=== PATIENT | female | born 1970 | race Caucasian/White ===

== ENCOUNTER 2017-05-08 13:38 | Emergency (ER) | payer SELFPAY ==
[2017-05-08 14:23] VITALS: BP 138/75
--- NOTE | 2017-05-08 14:32 | UC ---
General HPI - HPI Summary HPI Summary: needs Mirapex for Parkinson refilled---has original bottle from pharmacy with her - History of Current Complaint Chief Complaint: UCMedRefill Stated Complaint: MED REFILL Time Seen by Provider: 05/08/17 14:30 Hx Obtained From: Patient Onset/Duration: Gradual Onset Timing: Constant Current Severity: None - Allergy/Home Medications Allergies/Adverse Reactions: Allergies Allergy/AdvReac Type Severity Reaction Status Date / Time ear drop Allergy Unknown Uncoded 05/08/17 14:23 Reaction Details PMH/Surg Hx/FS Hx/Imm Hx Previously Healthy: No - Parkinsons - Surgical History Surgical History: Yes Surgery Procedure, Year, and Place: choley, hysterectomy, psoriasis - Family History Known Family History: Positive: None - Social History Occupation: Unemployed Lives: With Family Alcohol Use: None Substance Use Type: Marijuana Substance Use Comment - Amount & Last Used: daily Smoking Status (MU): Light Every Day Tobacco Smoker Type: Pipe Review of Systems Constitutional: Negative Skin: Negative Eyes: Negative ENT: Negative Respiratory: Negative Cardiovascular: Negative Gastrointestinal: Negative Genitourinary: Negative Motor: Negative Neurovascular: Negative Musculoskeletal: Negative Neurological: Negative Psychological: Negative All Other Systems Reviewed And Are Negative: Yes Physical Exam Triage Information Reviewed: Yes Appearance: Well-Appearing, No Pain Distress, Well-Nourished Vital Signs: Initial Vital Signs Temp 98.5 F 05/08/17 14:17 Pulse 72 05/08/17 14:17 Resp 18 05/08/17 14:17 BP 138/75 05/08/17 14:17 Pulse Ox 98 05/08/17 14:17 Vital Signs Reviewed: Yes Eye Exam: Normal Eyes: Positive: Conjunctiva Clear ENT Exam: Normal ENT: Positive: Normal ENT inspection, Hearing grossly normal. Negative: Nasal congestion, Nasal drainage, Trismus, Muffled/hoarse voice Dental Exam: Normal Neck exam: Normal Neck: Positive: Supple, Nontender Respiratory Exam: Normal Respiratory: Positive: No respiratory distress, No accessory muscle use Cardiovascular Exam: Normal Cardiovascular: Positive: Pulses Normal, Brisk Capillary Refill Musculoskeletal Exam: Normal Neurological Exam: Normal Neurological: Positive: Alert, Muscle Tone Normal Psychological Exam: Normal Skin Exam: Normal Course/Dx - Course Course Of Treatment: refill Mirapex, primary care provider referral--follow [facility] - Differential Dx - Multi-Symptom Differential Diagnoses: Other - parkinsons, [facility] Provider Diagnoses: Hea;juan carlos MAintenreji, PArkinsons Disease Discharge - Discharge Plan Condition: Stable Disposition: HOME Prescriptions: Pramipexole [Mirapex] 3 mg PO TID #180 tab Patient Education Materials: Parkinson Disease (ED) Referrals: [facility] [Provider Group] - 2 Weeks
== END 2017-05-08 14:35 | disposition home or self-care (01) ==
LOC: UCEAST 13:38
DX: G20 Parkinson's disease (principal); Z76.0 Encounter for issue of repeat prescription; F12.90 Cannabis use, unspecified, uncomplicated; F17.290 Nicotine dependence, other tobacco product, uncomplicated
CPT/HCPCS: 99201; G0463

== ENCOUNTER 2017-05-25 13:39 | Emergency (ER) | payer SELFPAY ==
[2017-05-25] MEDS ORDERED: Ammonia Inhalant* 1 EA AMP INH ONE (13:59)
[2017-05-25 14:47] LABS: Hematocrit 42 % (35-47); Hemoglobin 13.9 g/dl (12.0-16.0); Mean Corpuscular HGB Conc 33 g/dl (31-36); Mean Corpuscular Hemoglobin 32 pg (27-31); Mean Corpuscular Volume 95 fL (80-97); Mean Platelet Volume 9 um3 (7.4-10.4); Red Blood Count 4.39 10^6/ul (4.0-5.4); Red Cell Distribution Width 15 % (10.5-15); White Blood Count 9.4 10^3/ul (3.5-10.8)
--- NOTE | 2017-05-25 14:49 | RAD ---
Indication: Subacute hemiparesis and aphasia. Possible stroke. Symptom onset after 10:00 PM last night. Comparison: No relevant prior exams available on the [facility] PACS for comparison. Technique: Noncontrast CT vertex of skull through foramen magnum. Report: There is reyes matter white matter obscuration at the LEFT temporal lobe and junction of the temporal lobe and parietal lobe with associated sulcal effacement. Negative for effacement of the LEFT lateral ventricle, midline shift, or effacement of the basal cisterns. Suggestion of a hyperdense LEFT MCA sign from the M2 segment distal to the temporal lobe. Small hyperdense vessel at the LEFT temporal lobe. Negative for intra or extra-axial hemorrhage. Unremarkable orbital contents. No suspicious lesions of the calvarium or skull base evident. Complete opacification of the partially visualized LEFT maxillary sinus with indolent thickening of the sinus mendoza consistent with chronic sinusitis. Unremarkable scalp. IMPRESSION: The constellation of findings is most suspicious for a large LEFT middle cerebral artery distribution subacute ischemic stroke with mild associated mass effect. As tumor with vasogenic peritumoral edema is not entirely excluded MRI without and with contrast is suggested for further assessment if deemed appropriate based on clinical presentation and is clinically feasible. Results discussed with Dr. Quintero 05/25/2017 2:45 PM EDT
[2017-05-25] MEDS ORDERED: ASPIRIN 600 MG PR ONE (15:00)
[2017-05-25 15:06] LABS: Albumin 3.9 g/dL (3.2-5.2); BUN/Creatinine Ratio 10.1 (8-20); Calcium 9.5 mg/dL (8.6-10.3); EGFR African American 117.8 (>60); EGFR Non-African American 91.6 (>60); Globulin 3.2 g/dL (2-4); Potassium 3.6 mmol/L (3.5-5.0); Total Bilirubin 0.5 mg/dL (0.2-1.0); Total Protein 7.1 g/dL (6.4-8.9)
[2017-05-25] MEDS ORDERED: LORazepam INJ* 2 MG/ML 1 ML VIAL IV PUSH ONE ×2 (17:52→18:33)
[2017-05-25] MEDS ORDERED: Haloperidol INJ IV/IM* 5 MG/ML AMP IV SLOW PU ONE (17:52)
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
[2017-05-25] MEDS ORDERED: LORazepam INJ* 2 MG/ML 1 ML VIAL ONE (18:33)
[2017-05-25 18:37] VITALS: BP 137/82
--- NOTE | 2017-05-25 21:31 | CONS ---
NEUROLOGY CONSULTATION: DATE OF CONSULTATION: 05/25/17 - EMERGENCY DEPT. REFERRING PHYSICIAN: Dr. Quintero, he is in the emergency room. CHIEF COMPLAINT: Right-sided weakness. HISTORY OF PRESENT ILLNESS: Ara Weldon is a 46-year-old presumably right - handed woman, who presented to the emergency room today with right hemiparesis and aphasia. The patient is very aphasic and there is nobody currently in the exam room, so the history is from records we obtained from [facility] as well as Dr. Quintero, who apparently spoke to the boyfriend. According to records from [facility], she developed a weakness of her right side and difficulty speaking about 2:30 yesterday. She was evaluated at [facility] Emergency Room last evening around 6. She was described as having weakness in the right arm and leg and aphasia. A CT scan of the brain was obtained, was interpreted as showing early changes in the left hemisphere. A CT angiogram of the neck and brain was interpreted showing occlusion of the M1 segment of the left middle cerebral artery. It was felt that the patient was improving and did not require TPA. Apparently, there was discussion about transfer her to hospital with endovascular capabilities and she signed out against medical advice. Her boyfriend apparently called an ambulance, who brought her into our emergency room this afternoon. The ambulance notes indicate the patient was found lying in a tent and was unable to move her right side. We have very little medical history, but she carries a diagnosis of Parkinson's disease. She may have been on a dopamine agonist from the records from [facility]. The patient is too aphasic to get any additional history. There are no hospital records in our system that I can see that she has been in our hospital before. According to records obtained from [facility], I believe she is on Mirapex. ALLERGIES: We are not aware of any drug allergies. SOCIAL HISTORY: She apparently smokes cigarettes and marijuana. PHYSICAL EXAM: She is an obese 46-year-old with multiple tattoos. Blood pressure is most recently 124/91, but earlier to that was 155/90, heart rate 16 and sinus on the monitor, respirations are about 18, and oxygen saturations 99% on room air. Heart is in a regular rate and rhythm and I do not hear any murmurs. Head is atraumatic. Oral mucosa is moist and atraumatic. Neck is supple. I do not feel carotid pulses, but I do not hear any bruits either. Neurological exam, eye movements are full. Pupils react equally to light from 4 down to 2.5 mm. Funduscopic exam reveals sharp discs bilaterally. She responds to visual threat from the left side, but not as well from the right or clearly from the right. She has central pattern of right facial weakness. She has decreased nasal tickle response on the right. She has no movement of the right arm or right leg proximally and distally. She has good movement to command of the left arm and leg. She has a right Babinski sign and left plantar flexor. She is alert and tearful and repeats herself over and over. DIAGNOSTIC STUDIES/LAB DATA: CT scan of the brain obtained here is reviewed and which reveals edema in the left hemisphere, particularly posteriorly. There may be some early brain stem changes as well. There is no left to right shift, however. Other laboratory data available here is a normal CBC and chemistry profile. I have no other laboratory data. CT angiogram from [facility] is reviewed, but I do not have the images. IMPRESSION: Left middle cerebral artery infarction. She appears to have involvement of the lower extremity as well. I am concerned that her young age and with early changes on her CT that she is at risk of malignant middle cerebral artery syndrome. She is certainly not a candidate for any type of endovascular procedure at this point. I put in a call to the [facility] Stroke [facility] to discuss her case, specifically regarding the possibility of hemicraniectomy if she does develop malignant middle cerebral artery syndrome. I discussed with Dr. Dotson whether or not that could be done in our institution and he felt that he would not perform that procedure here. There is nobody present with the patient, so I am going to have to presume that she would want a transfer to a center capable of that procedure unless her boyfriend or some other relative comes in and they can give me further information. [id number]/[facility] #: [id number] RICHARD
== END 2017-05-25 19:07 | disposition short-term general hospital (02) ==
LOC: ED 13:39
DX: I66.09 Occlusion and stenosis of unspecified middle cerebral artery (principal); R53.1 Weakness; F17.210 Nicotine dependence, cigarettes, uncomplicated
CPT/HCPCS: 36415; 70450; 80053; 84484; 85027; 85610; 85730; 93005; 96374; 96375; A9270-GY; J1630; J2060

== ENCOUNTER 2017-06-08 22:58 | Inpatient (IN) | payer SELFPAY ==
[2017-06-08] MEDS ORDERED: Pramipexole TAB* 0.5 MG PO ONE (23:22)
[2017-06-09] MEDS ORDERED: Haloperidol INJ IV/IM* 5 MG/ML AMP ONE (00:25)
[2017-06-09] MEDS ORDERED: diPHENhydraMINE IV* 50 MG/ML 1 ml VIAL (BENADRYL) ONE (00:26)
[2017-06-09] MEDS ORDERED: LORazepam INJ* 2 MG/ML 1 ML VIAL ONE (00:26)
--- NOTE | 2017-06-09 00:41 | ED ---
Mishel Aviles Edward, scribed for Lonnie Sims MD on 06/08/17 at 2323 . Altered Mental Status - HPI Summary HPI Summary: 46 y/o female BIBA w/ increased confusion, per EMS. Pt wants medications on visit. PMHx CVA 2 weeks ago. LEVEL 5 CAVEAT DUE TO AMS.pt d/c 1 day ago from [place] for cva/psych - History Of Current Complaint Chief Complaint: EDAltMentalStatus Stated Complaint: CONFUSION Time Seen by Provider: 06/08/17 23:17 Hx From Patient Unobtainable Due To: Altered Mental Status - Confusion - Allergies/Home Medications Allergies/Adverse Reactions: Allergies Allergy/AdvReac Type Severity Reaction Status Date / Time ear drop Allergy Unknown Uncoded 05/08/17 14:23 Reaction Details Home Medications: Home Medications Aspirin TAB* [Aspirin 325 MG TAB*] 325 mg PO DAILY 06/09/17 [History Confirmed 06/09/17] Atorvastatin* [Lipitor*] 80 mg PO DAILY 06/09/17 [History Confirmed 06/09/17] Divalproex ER TAB(*) [Depakote ER TAB(*)] 500 mg PO QPM 06/09/17 [History Confirmed 06/09/17] PMH/Surg Hx/FS Hx/Imm Hx Previously Healthy: No Neurological History: Reports: Hx CVA - Surgical History Surgery Procedure, Year, and Place: choley, hysterectomy, psoriasis Infectious Disease History: No Infectious Disease History: Denies: Traveled Outside the [place] in Last 30 Days - Family History Known Family History: Positive: Other - parkinsons, and stroke - Social History Alcohol Use: None Substance Use Type: Reports: Marijuana Substance Use Comment - Amount & Last Used: daily Smoking Status (MU): Light Every Day Tobacco Smoker Type: Pipe Review of Systems - ROS Summary Review of Systems Summary: LEVEL 5 CAVEAT DUE TO AMS. Constitutional: Negative Eyes: Negative ENT: Negative Cardiovascular: Negative Respiratory: Negative Gastrointestinal: Negative Genitourinary: Negative Musculoskeletal: Negative Skin: Negative Neurological: Negative Psychological: Normal All Other Systems Reviewed And Are Negative: No Physical Exam - Summary Physical Exam Summary: LEVEL 5 CAVEAT DUE TO AMS. Triage Information Reviewed: Yes Vital Signs On Initial Exam: Initial Vitals Temp Pulse Resp BP Pulse Ox 97.4 F 87 16 130/70 96 06/08/17 23:04 06/08/17 23:04 06/08/17 23:04 06/08/17 23:04 06/08/17 23:04 Vital Signs Reviewed: Yes Appearance: Positive: Well-Appearing, No Pain Distress - mildly confused Skin: Positive: Warm Head/Face: Positive: Normal Head/Face Inspection Eyes: Positive: BECKIE Neck: Positive: Supple Respiratory/Lung Sounds: Positive: Breath Sounds Present Cardiovascular: Positive: RRR Abdomen Description: Positive: Nontender, Soft Musculoskeletal: Positive: Strength/ROM Intact Neurological: Positive: Normal Gait, Expressive Aphasia - mild Psychiatric: Positive: Affect/Mood Appropriate Diagnostics - Vital Signs Vital Signs Temp Pulse Resp BP Pulse Ox 06/08/17 23:04 97.4 F 87 16 130/70 96 - Laboratory Result Diagrams: 06/09/17 01:15 06/09/17 01:15 Lab Statement: Any lab studies that have been ordered have been reviewed, and results considered in the medical decision making process. - CT BRAIN CT CT Interpretation: Positive (See Comments) - HIGH ATTENUATION OF GYRI IN THE AREA OF INFARCT IN THE L TEMPORAL LOBE WHICH MAY OR PRESENT PETECHIAL HEMORRHAGE OR CORTICAL LAMINAR NECROSIS CT Interpretation Completed By: Radiologist Altered Mental Statu Course/Dx - Course Assessment/Plan: 46 y/o female BIBA w/ increased confusion, per EMS. Pt wants medications on visit. Pt had a CVA 2 weeks ago. LEVEL 5 CAVEAT D[address] TO AMS. BRAIN [address] SHOWS HIGH ATTENUATION OF GYRI IN THE AREA OF INFARCT IN THE L TEMPORAL LOBE WHICH MAY OR PRESENT PETECHIAL HEMORRHAGE OR CORTICAL LAMINAR NECROSIS. Pt [facility] be [facility] [place] [facility]. Roe agreed to admit at 14:30. - Diagnoses Discharge Diagnoses: Confusion Discharge - Discharge Plan Condition: Stable Disposition: ADMITTED TO [facility] documentation as recorded by the Mishel noyola Edward accurately reflects the service I personally performed and the decisions made by , Lonnie Sims MD.
[2017-06-09 01:26] LABS: Hematocrit 41 % (35-47); Hemoglobin 13.7 g/dl (12.0-16.0); Mean Corpuscular HGB Conc 33 g/dl (31-36); Mean Corpuscular Hemoglobin 32 pg (27-31); Mean Corpuscular Volume 95 fL (80-97); Mean Platelet Volume 10 um3 (7.4-10.4); Red Blood Count 4.32 10^6/ul (4.0-5.4); Red Cell Distribution Width 14 % (10.5-15); White Blood Count 12.8 10^3/ul (3.5-10.8)
[2017-06-09 01:28] LABS: Add Diff/Slide Review? Slide Review Added; Comments Flag Yes
[2017-06-09 01:35] LABS: Urine Bacteria 1+ (Absent); Urine Bilirubin Negative (Negative); Urine Glucose Negative (Negative); Urine Nitrite Negative (Negative)
[2017-06-09 01:40] LABS: Albumin 3.9 g/dL (3.2-5.2); BUN/Creatinine Ratio 15.9 (8-20); Calcium 9.8 mg/dL (8.6-10.3); EGFR African American 130.8 (>60); EGFR Non-African American 101.7 (>60); Globulin 3.1 g/dL (2-4); Potassium 3.3 mmol/L (3.5-5.0); Total Bilirubin 0.4 mg/dL (0.2-1.0)
[2017-06-09 01:43] LABS: Troponin I 0.01 ng/mL (<0.04)
[2017-06-09] MEDS: Heparin VIAL(*) 5000 UNITS/ML VIAL (FIVE THOUSAND) SUBCUT SCH ×2 (05:57→15:44)
--- NOTE | 2017-06-09 07:50 | RAD ---
HISTORY: Confusion COMPARISONS: May 25, 2017 TECHNIQUE: Multiple contiguous axial CT scans were obtained of the head without intravenous contrast. FINDINGS: HEMORRHAGE/INFARCT: There is high attenuation material noted along the left temporal lobe in a gyriform pattern consistent with tear for hemorrhage. There is hypoattenuation in this area also consistent with subacute infarct corresponding to there is noted on the previous examination. Elsewhere, there is no hemorrhage or acute infarct. MASSES/SHIFT: There is no mass or shift. EXTRA-AXIAL SPACES: There are no extra-axial fluid collections. SULCI AND VENTRICLES: The sulci and ventricles are normal in size and position for the patient's stated age. CEREBRUM: As noted above, there is hypoattenuation with gyriform high attenuation of left temporal lobe BRAINSTEM: There are no focal parenchymal abnormalities. CEREBELLUM: There are no focal parenchymal abnormalities. VESSELS: The vessels are grossly normal. PARANASAL SINUSES: There is opacification of the left maxillary sinus with osteitis of the surrounding bone ORBITS: The orbits are unremarkable. BONES AND SOFT TISSUE: No bone or soft tissue abnormalities are noted. OTHER: None IMPRESSION: 1. AGAIN NOTED ARE FINDINGS CONSISTENT WITH SUBACUTE INFARCT OF THE LEFT TEMPORAL LOBE. THERE HAS BEEN INTERVAL DEVELOPMENT OF GYRIFORM HIGH ATTENUATION MATERIAL CONSISTENT WITH HEMORRHAGIC CONVERSION/CORTICAL LAMINAR NECROSIS. THERE IS NO LARGE PARENCHYMAL HEMATOMA. THERE IS NO SHIFT. 2. FINDINGS CONSISTENT WITH CHRONIC SINUSITIS OF THE LEFT MAXILLARY SINUS
[2017-06-09] MEDS: Pramipexole TAB* 0.5 MG PO SCH ×3 (08:24→20:14)
[2017-06-09] MEDS: Atorvastatin* 80 MG TAB PO SCH (08:26)
[2017-06-09] MEDS: Aspirin TAB* 325 MG PO SCH (08:26)
[2017-06-09] MEDS ORDERED: Ibuprofen TAB* 600 MG PO PRN (08:36)
--- NOTE | 2017-06-09 09:06 | HP ---
CC: Estefania Ansari NP * HISTORY AND PHYSICAL: DATE OF ADMISSION: 06/09/17 PRIMARY CARE PHYSICIAN: Estefania Ansari NP CHIEF COMPLAINT: Altered mental status. HISTORY OF PRESENT ILLNESS: The patient is a 46-year-old woman, who apparently was discharged from [facility] yesterday after being transferred there in late April for cerebrovascular accident. After that the patient apparently had psychiatric issues and was being seen daily by Psychiatry. She was cleared at that time to be unable to make her own medical decisions. Interestingly, she was discharged yesterday, but we do not have the paperwork. Her family is concerned and called the EMS because they cannot take care of her and they said she is too erratic to be at home alone. The patient herself had issues answering questions for example, when I asked where she was she consistently told me the time and the date but could not understand why they did not understand her responses. She also said she was just want to get Mirapex refilled and wanted to go home. She also apparently said she was calling her fiance to pick her up and that he agreed to do so, but she was actually never on the phone with anybody. PAST MEDICAL HISTORY: The patient has a past medical history significant for cerebrovascular accident on 05/25/17, left middle cerebral artery infarction, restless leg syndrome, unknown at this time, psychiatric issues as the information from [facility] was incomplete. CURRENT MEDICATIONS: As far as she knows at this point: 1. Depakote ER 500 mg in the evening. 2. Lipitor 80 mg daily. 3. Aspirin 325 mg daily. 4. Mirapex 3 mg 3 times a day. ALLERGIES: She has no known drug allergies. FAMILY HISTORY: Unable to obtain from the patient and not available. SOCIAL HISTORY: She smokes 3 to 4 cigarettes a day, rare alcohol, no recreational drug use. She does not work. She is not . She has no children, but she states she has a Kevin zaman. REVIEW OF SYSTEMS: Unable to obtain from the patient because of her confusion. PHYSICAL EXAMINATION GENERAL: A pleasant woman sitting up in bed, in no acute distress. VITAL SIGNS: Temperature 97.8 degrees, heart rate 66 beats per minute, respiratory rate 18 breaths per minute, pulse ox 97%, blood pressure 148/50. HEENT: Normocephalic and atraumatic. Pupils are equal, round and reactive. Moist mucous membranes. NECK: Supple. No JVD, bruits, palpable thyroid or lymphadenopathy. CHEST: Clear to auscultation and percussion bilaterally. CARDIOVASCULAR: S1, S2 appreciated. Regular rate and rhythm. ABDOMEN: Positive bowel sounds in all 4 quadrants. Soft, nontender, and nondistended. EXTREMITIES: No cyanosis, clubbing, or edema. +2 peripheral pulses bilaterally. NEUROLOGIC: Alert and oriented x3. Moves all extremities. SKIN: No rashes but numerous tattoos. LABORATORY DATA: White count 12.8, hemoglobin 13.7, hematocrit 41, platelets are 247. Sodium is 123, potassium 3.3, chloride 92, CO2 26, BUN 10, creatinine 0.68, glucose 103. Urinalysis trace leukocyte esterase, 1+ wbc's. CT of head shows the left middle cerebral artery CVA with some possible associated hemorrhage. Official reading to follow. ASSESSMENT AND PLAN: 1. Altered mental status, confusion. At this point, it is unclear, I am not quite sure what the patient's psychiatric history is. We will get a mental health evaluation. I would also like to get the discharge summary from [facility] because on the old previous ones it is said she did not have capacity to make medical decisions. We would also like to speak to her family to see exactly what her story was that made them call xerox machine mechanic and what she was like prior to her stroke. For now, we will put her on a one-to-one. Continue her current medications and await the aforementioned information. 2. Hypernatremia. Low but not low enough I think to give any of these issues. We will continue to monitor periodically. Unclear if it is really she is on at this time or her recent stroke. 3. DVT prophylaxis: Heparin subcu. 4. FEN: Regular diet. 5. The patient is a full code. TIME SPENT: Over 75 minutes was spent on this H and P; more than 40 minutes of which is spent in direct [id number] contact with the patient in evaluation, physical exam, counseling, and coordination of care. [id number]/[facility] #: [id number] MTDD
--- NOTE | 2017-06-09 10:42 | CONSULT ---
Identification - Patient Identification Reason for Psychiatric Consultation: Suicidal Ideation, Incapacitating Symptoms , Patient Distress, Other - Capacity Evaluation due to patient request to discharge AMA. -: Patient is a 46 year old, F admitted on 06/09/17. Consult question: Patient requesting discharge AMA. Please evaluate for capacity to make this decision. - MHU Identification Prior Psychiatric Diagnosis: Bipolar d/o Arrived to Hospital Via: ambulance History - Objective HPI: CONSULT QUESTION: Evaluate capacity of patient, requesting discharge AMA, to make medical decision. Capacity Evaluation: Patient does not demonstrate capacity to make medical decisions. 1. Able to make a choice - YES 2. Able to understand the medical issue - NO 3. Able to understand the proposed treatment - NO 4. Able to understand alternatives to proposed treatment - NO 5. Able to acknowledge medical condition and consequences of the treatment options - NO 6. Able to rationally compare treatment options and consequences and offer reasons for selection - NO HPI: ---- 46yo female patient with PPHx significant for Bipolar d/o by Hx presents to the [facility] ED, brought in by ambulance, called by patient's BF due to disorganized TP and erratic behaviors. Patient was discharged on 06/08/17 form [facility], treated for CVA. Patient noted to have belligerent altercations with staff since the CVA was diagnosed initially at [facility] on 05/25/17. Also of note, patient's capacity was in question at [facility] days prior to discharge due to her agitation, belligerence, and poor judgement. Full records from [facility] are pending. MSE: ----- Appearance - obese female, looks stated age, in hospital gown, tattooed on back and both upper extremities Behavior - agitated, PMR, cooperative initially only Speech - mumbled/slurred, dysarthric, soft volume, with slow rate Eye Contact - poor Mood - "pissed off" Affect - agitated TP - disorganized TC - focused on suing hospital for restraining her from leaving the ED last night Perception - no symptoms of psychosis currently reported or noted Orientation - A&Ox2(person and place) Cognition - slowed Attention - poor Insight - poor Judgment - poor SI / HI - denies both ASSESSMENT: 1. Delirium 2/2 CVA vs UTI vs Hyponatremia vs Substance induced 2. Bipolar d/o by Hx RECOMMENDATION: 1. Patient is A&Ox2(person and place), yet memory, attention and concentration are noted to be poor. Patient is disorganized in TP, and becomes easily agitated when TC is questioned. Patient can not recall the actual reason for her presentation to the [facility] ED last night. She is unable to recall why she was admitted recently to [facility] and does not recall her Dx there nor can she recall the names of meds she was discharged on. Patient does not demonstrate capacity to make medical decisions. 2. Recommend continuing currently Rx'd Haldol 5mg po BID for mx of post CVA delirium and associated agitation. 3. Recommend continuing currently Rx'd Depakote 500mg po qhs for mood stabilization. Past Psych Hx: Prior dx with Bipolar d/o by hx, otherwise patient uncooperative. Suicide attempt Hx / SIB Hx: Sucidal gesture at [facility](wrapping a phone cord around her neck) during admission last week. Patient uncooperative. Substance Hx: Recent Cannabis use d/o symptoms noted. Patient uncooperative. Medical Hx: HLD Psoriasis Patient uncooperative. Surgical Hx: Cholecystectomy Hysterectomy Patient uncooperative. Allergies: --------- NKDA Social Hx: --------- Patient lives with supportive BF Patient uncooperative. Vitals: ------ Vital Signs (72 hours) 06/08/17 06/09/17 06/09/17 23:04 01:37 01:38 Temperature 97.4 F Pulse Rate 87 Respiratory 16 15 Rate Blood Pressure 130/70 163/95 (mmHg) O2 Sat by Pulse 96 Oximetry 06/09/17 06/09/17 04:32 07:58 Temperature 97.8 F 98.2 F Pulse Rate 62 79 Respiratory 18 11 Rate Blood Pressure 148/50 112/59 (mmHg) O2 Sat by Pulse 97 97 Oximetry LABS: ------- (06/09/17) CT BRAIN IMPRESSION: HIGH ATTENUATION OF GYRI IN THE AREA OF INFARCT IN THE L TEMPORAL LOBE WHICH MAY OR PRESENT PETECHIAL HEMORRHAGE OR CORTICAL LAMINAR NECROSIS (05/25/2017) CT BRAIN IMPRESSION: The constellation of findings is most suspicious for a large LEFT middle cerebral artery distribution subacute ischemic stroke with mild associated mass effect. As tumor with vasogenic peritumoral edema is not entirely excluded MRI without and with contrast is suggested for further assessment if deemed appropriate based on clinical presentation and is clinically feasible. Laboratory Tests 06/09/17 06/09/17 06/09/17 01:15 01:15 01:15 WBC 12.8 H RBC 4.32 Hgb 13.7 Hct 41 MCV 95 MCH 32 H MCHC 33 RDW 14 Plt Count 247 MPV 10 Neut % (Auto) 71.6 Lymph % (Auto) 13.8 L [place] % (Auto) 5.5 Eos % (Auto) 2.6 Baso % (Auto) 6.5 H Absolute Neuts (auto) 9.1 H Absolute Lymphs (auto) 1.8 Absolute Monos (auto) 0.7 Absolute Eos (auto) 0.3 Absolute Basos (auto) 0.8 H Absolute Nucleated RBC 0.01 Nucleated RBC % 0.1 Sodium 123 L Potassium 3.3 L Chloride 92 L Carbon Dioxide 26 Anion Gap 5 BUN 10 Creatinine 0.63 Est GFR ( Amer) 130.8 Est GFR (Non-Af Amer) 101.7 BUN/Creatinine Ratio 15.9 Glucose 103 H Lactic Acid 1.1 Calcium 9.8 Total Bilirubin 0.40 AST 18 ALT 23 Alkaline Phosphatase 91 Troponin I 0.01 Total Protein 7.0 Albumin 3.9 Globulin 3.1 Albumin/Globulin Ratio 1.3 Urine Color Urine Appearance Urine pH Ur Specific [place] Urine Protein Urine Ketones Urine Blood Urine Nitrate Urine Bilirubin Urine Urobilinogen Ur Leukocyte Esterase Urine WBC (Auto) Urine RBC (Auto) Ur Squamous Epith Cells Urine Bacteria Urine Glucose 06/09/17 01:25 WBC RBC Hgb Hct MCV MCH MCHC RDW Plt Count MPV Neut % (Auto) Lymph % (Auto) [place] % (Auto) Eos % (Auto) Baso % (Auto) Absolute Neuts (auto) Absolute Lymphs (auto) Absolute Monos (auto) Absolute Eos (auto) Absolute Basos (auto) Absolute Nucleated RBC Nucleated RBC % Sodium Potassium Chloride Carbon Dioxide Anion Gap BUN Creatinine Est GFR ( Amer) Est GFR (Non-Af Amer) BUN/Creatinine Ratio Glucose Lactic Acid Calcium Total Bilirubin AST ALT Alkaline Phosphatase Troponin I Total Protein Albumin Globulin Albumin/Globulin Ratio Urine Color Yellow Urine Appearance Cloudy Urine pH 5.0 Ur Specific [place] 1.017 Urine Protein Negative Urine Ketones Trace H Urine Blood Negative Urine Nitrate Negative Urine Bilirubin Negative Urine Urobilinogen Negative Ur Leukocyte Esterase Trace H Urine WBC (Auto) 1+(6-10/hpf) H Urine RBC (Auto) Trace(0-2/hpf) Ur Squamous Epith Cells Present H Urine Bacteria 1+ H Urine Glucose Negative Exam Appearance: Obese Hygiene: Normal Grooming: Disheveled Psychomotor Activities: Abnormal-Decreased Exhibits Abnormal Movement: No Attitude and Relatedness: Minimally Cooperative Eye Contact: Poor - Speech Quality: Unpressured Latencies: Short Quantity: Terse Patient's Decription of Mood: "Angry" Observed Affect: Depressed Affect Consistent with: Dysphoria Patient's Thought Process: Disorganized Thought Content: No Passive Wish, No Suicidal Planning, No Homicidal Ideation, No Paranoid Ideation Experiencing Hallucinations: No, Sensorium is Clear Type of Hallucinations: Visual: No, Auditory: No, Command: No Level of Consciousness: Obtunded Orientation: Yes Intact, Yes Orientated to Place, Yes Orientated to Person, No Orientated to Time Impulse Control: Impaired Insight and Judgement: Impaired Impression - Impression Clinical Impression: 1. Delirium 2/2 CVA 2. Bipolar d/o by HX Inpatient DSM-IV Dx: 1. Delirium 2/2 CVA. 2. Bipolar d/o by HX Problem List - U Problems Type of Problem: Mood Status of Problem: Active Problem: Delirium 2/2 CVA Plan - Treatment Plan Treatment Plan: ASSESSMENT: 1. Delirium 2/2 CVA vs UTI vs Hyponatremia vs Substance induced 2. Bipolar d/o by Hx RECOMMENDATION: 1. Patient is A&Ox2(person and place), yet memory, attention and concentration are noted to be poor. Patient is disorganized in TP, and becomes easily agitated when TC is questioned. Patient can not recall the actual reason for her presentation to the [facility] ED last night. She is unable to recall why she was admitted recently to [facility] and does not recall her Dx there nor can she recall the names of meds she was discharged on. Patient does not demonstrate capacity to make medical decisions. 2. Recommend continuing currently Rx'd Haldol 5mg po BID for mx of post CVA delirium and associated agitation. 3. Recommend continuing currently Rx'd Depakote 500mg po qhs for mood stabilization. Medications: Current Medications Aspirin (Aspirin Tab*) 325 mg PO DAILY [facility] Last Admin: 06/09/17 08:26 Dose: Not Given Atorvastatin Calcium (Lipitor*) 80 mg PO DAILY [facility] Last Admin: 06/09/17 08:26 Dose: Not Given Divalproex Sodium (Depakote Er Tab(*)) 500 mg PO QPM [facility] Haloperidol (Haldol Tab*) 5 mg PO BID [facility] Heparin Sodium (Porcine) (Heparin Vial(*)) 5,000 units SUBCUT Q8HR [facility] Last Admin: 06/09/17 05:57 Dose: Not Given Ibuprofen (Motrin Tab*) 600 mg PO Q8H PRN PRN Reason: PAIN Pramipexole Dihydrochloride (Mirapex Tab*) 3 mg PO TID [facility] Last Admin: 06/09/17 08:24 Dose: 3 mg
[2017-06-09] MEDS: Haloperidol TAB* 5 MG PO SCH ×2 (11:39→20:17)
[2017-06-09] MEDS: Divalproex ER TAB(*) 500 MG PO SCH ×2 (16:53→16:55)
--- NOTE | 2017-06-09 18:14 | PN ---
Subjective Date of Service: 06/09/17 Interval History: This is a 46 yo female with recent hospital admission to [facility] for a large MCA CVA. Patient was discharged yesterday to the care of her boyfriend who contacted EMS for transport to the hospital for erratic behavior. Notes from [place] were limited but demonstrated patient was displaying erratic and inappropriate behavior during her time there and psychiatry was involved in her care, recommending Haldol and Depakote for mood stabilization. Patient is confused about the circumstances of her admission and would like to return home. She is under the impression she came to the hospital for a medication refill. She denies pain or other acute complaints but is quite upset regarding her current circumstances. Objective Active Medications: Aspirin (Aspirin Tab*) 325 mg PO DAILY [facility] Last Admin: 06/09/17 08:26 Dose: Not Given Atorvastatin Calcium (Lipitor*) 80 mg PO DAILY [facility] Last Admin: 06/09/17 08:26 Dose: Not Given Divalproex Sodium (Depakote Er Tab(*)) 500 mg PO QPM [facility] Last Admin: 06/09/17 16:55 Dose: Not Given Haloperidol (Haldol Tab*) 5 mg PO BID [facility] Last Admin: 06/09/17 11:39 Dose: Not Given Heparin Sodium (Porcine) (Heparin Vial(*)) 5,000 units SUBCUT Q8HR [facility] Last Admin: 06/09/17 15:44 Dose: Not Given Ibuprofen (Motrin Tab*) 600 mg PO Q8H PRN PRN Reason: PAIN Pramipexole Dihydrochloride (Mirapex Tab*) 3 mg PO TID [facility] Last Admin: 06/09/17 15:44 Dose: Not Given Vital Signs 06/09/17 15:49 Temperature 98.4 F Pulse Rate 66 Respiratory 20 Rate Blood Pressure 142/69 (mmHg) O2 Sat by Pulse 93 Oximetry Oxygen Devices in Use Now: None Appearance: Disheveled but otherwise well appearing female in NAD. Patient did not allow for full exam to be completed Result Diagrams: 06/09/17 01:15 06/09/17 01:15 Diagnostic Imaging: CT brain - subacute infarct of L temporal lobe, small area of possible hemorrhagic conversion Assess/Plan/Problems-Billing Assessment: This is a 46 yo female with recent admission to [facility] for large MCA distribution stroke which was complicated by mood instability who presented with erratic behavior to our emergency department. - Patient Problems (1) Mood disorder Comment: Appreciate input from psychiatry Patient lacks capacity to make an informed medical decision No obvious organic cause for her current behavior Psychiatry agrees with continuing Haldol and Depakote No current suicidal or homocidal ideations (2) CVA (cerebral vascular accident) Comment: Recent L MCA CVA with R hemiparesis and speech impairment with little residual deficit Recent MCA may have contributed to her current mood changes Based on review of records, the behavior observed here is quite similar to that observed during her stay there (3) RLS (restless legs syndrome) Comment: Cont Mirapex (4) Full code status (5) DVT prophylaxis Comment: SCDs and encourage ambulation Hold on chemical prophylaxis due to small area of possible hemorrhage appreciated on CT Status and Disposition: Inpatient. Patient lacks capacity to leave AMA. Her boyfriend, Kevin, is unwilling to assume care for her. Resume previously prescribed psychiatric medications and consider terminologist placement if insight and decision making capability do not improve. Review of discharge summary is pending at this time
[2017-06-10 07:54] VITALS: BP 101/52
[2017-06-10 08:38] LABS: Hematocrit 42 % (35-47); Hemoglobin 13.9 g/dl (12.0-16.0); Mean Corpuscular HGB Conc 34 g/dl (31-36); Mean Corpuscular Hemoglobin 32 pg (27-31); Mean Corpuscular Volume 95 fL (80-97); Mean Platelet Volume 10 um3 (7.4-10.4); Red Cell Distribution Width 14 % (10.5-15)
[2017-06-10 08:55] LABS: BUN/Creatinine Ratio 18.6 (8-20); Calcium 9.4 mg/dL (8.6-10.3); EGFR African American 115.9 (>60); EGFR Non-African American 90.1 (>60); Potassium 3.8 mmol/L (3.5-5.0)
[2017-06-10] MEDS ORDERED: Haloperidol INJ IV/IM* 5 MG/ML AMP IM PRN (09:35)
[2017-06-10] MEDS: Aspirin TAB* 325 MG PO SCH (09:41)
[2017-06-10] MEDS: Haloperidol TAB* 5 MG PO SCH (09:41)
[2017-06-10] MEDS: Pramipexole TAB* 0.5 MG PO SCH ×2 (09:41→15:15)
[2017-06-10] MEDS: Atorvastatin* 80 MG TAB PO SCH (09:41)
[2017-06-10] MEDS ORDERED: Haloperidol TAB* 5 MG PO PRN (10:26)
[2017-06-10] MEDS ORDERED: Ziprasidone IM INJ* 20 MG/ML VIAL IM PRN (10:27)
--- NOTE | 2017-06-10 10:36 | PN ---
Subjective Date of Service: 06/10/17 Interval History: Patient has been non-compliant with oral medications overnight and again this am. She has been demanding to leave the hospital. Her timeline of her hospital stay is grossly off and she reports compliance with her medications which is well documented to the contrary. She has been yelling profanity at the nursing and medical staff. Objective Active Medications: Aspirin (Aspirin Tab*) 325 mg PO DAILY [facility] Last Admin: 06/10/17 09:41 Dose: Not Given Atorvastatin Calcium (Lipitor*) 80 mg PO DAILY [facility] Last Admin: 06/10/17 09:41 Dose: Not Given Divalproex Sodium (Depakote Er Tab(*)) 500 mg PO QPM [facility] Last Admin: 06/09/17 16:55 Dose: Not Given Haloperidol (Haldol Tab*) 5 mg PO Q6H PRN PRN Reason: AGITATION Ibuprofen (Motrin Tab*) 600 mg PO Q8H PRN PRN Reason: PAIN Last Admin: 06/09/17 21:52 Dose: 600 mg Pramipexole Dihydrochloride (Mirapex Tab*) 3 mg PO TID [facility] Last Admin: 06/10/17 09:41 Dose: Not Given Ziprasidone (Geodon Im Inj*) 20 mg IM Q2H PRN PRN Reason: AGITATION Vital Signs: Temp Pulse Resp BP Pulse Ox 98.1 F 51 18 101/52 97 06/10/17 07:37 06/10/17 07:37 06/10/17 08:00 06/10/17 07:37 06/10/17 07:37 Oxygen Devices in Use Now: None Appearance: Middle aged female who is moderately agitated. She asked me to speak with her boyfriend but after ~15 sec of conversation hung the phone up on my behalf and began yelling inappropriate profanity. Remainder of exam was not completed. Result Diagrams: 06/10/17 08:15 06/10/17 08:15 Diagnostic Imaging: CT brain - subacute infarct of L temporal lobe, small area of possible hemorrhagic conversion Assess/Plan/Problems-Billing Assessment: This is a 46 yo female with recent admission to [facility] for large MCA distribution stroke which was complicated by mood instability who presented with erratic behavior to our emergency department. - Patient Problems (1) Mood disorder Comment: With acute agititation and possible psychosis Patient was evaluated by psychiatry yesterday which was appreciated but her level of agitiation and appropriateness for treatment on a medical floor has declined in the last 24 hours She is unwilling to cooperate with oral medications at this time Phone call has been placed to the behavioral health unit for re-evaluation for admission to the psychiatric service Patient lacks capacity to make an informed medical decision and may not leave the hospital AMA No obvious organic cause for her current behavior Plan to continue Haldol and Depakote No current suicidal gestures (2) CVA (cerebral vascular accident) Comment: Recent L MCA CVA with R hemiparesis and speech impairment with little residual deficit Recent MCA may have contributed to her current mood changes Based on review of records, the behavior observed here is quite similar to that observed during her stay there (3) RLS (restless legs syndrome) Comment: Cont Mirapex (4) Full code status (5) DVT prophylaxis Comment: SCDs and encourage ambulation Hold on chemical prophylaxis due to small area of possible hemorrhage appreciated on CT Status and Disposition: Inpatient. Patient lacks capacity to leave AMA. Her boyfriend, Kevin, is unwilling to assume care for her. Patient requires more intensive psychiatric management, re-evaluation pending by psychiatry.
[2017-06-10] MEDS ORDERED: Atorvastatin* 80 MG TAB PO SCH (18:00)
[2017-06-10] MEDS ORDERED: Aspirin TAB* 325 MG PO SCH (18:00)
--- NOTE | 2017-06-11 05:01 | TRS ---
CC: Primary care provider * TRANSFER SUMMARY: DATE OF ADMISSION: 06/08/17 DATE OF TRANSFER: 06/10/17 ACCEPTING PHYSICIAN: Dr. Marley. FACILITY TO BE TRANSFERRED: To [facility]. TRANSFERRING PROVIDER: VIPIN Lr CONSULTING PSYCHIATRIST: Dr. Tellez. SUPERVISING PHYSICIAN: Dr. Yony Alcantara * (DICTATED BY VIPIN LR) PRIMARY DISCHARGE DIAGNOSES: Unspecified mood disorder with severe agitation and possible psychosis. SECONDARY DISCHARGE DIAGNOSES: 1. Left middle cerebral artery distribution stroke approximately 2 weeks ago with recent discharge from [facility]. No significant residual deficit. 2. Restless syndrome. DISCHARGE MEDICATIONS: 1. Aspirin 325 mg p.o. daily. 2. Atorvastatin 80 mg p.o. daily. 3. Depakote 500 mg p.o. nightly. 4. Haldol 5 mg p.o. q.6 hours as needed for agitation. 5. Mirapex 3 mg p.o. 3 times daily. Medication changes: None. HOSPITAL IMAGING: CT of the brain shows subacute infarct in the left temporal region. There has been some development of an area of high attenuation consistent with possible hemorrhagic conversion or area of necrosis. There is no large parenchymal hematoma, no shift. HOSPITAL COURSE: This is a 46-year-old female who sustained a large MCA distribution stroke the end of April and was transferred from our facility to [facility] for further treatment. The patient had been seen at an outside facility with similar symptoms the day prior and left the emergency department AMA. She attempted to leave our emergency department AMA, but was subsequently transferred against her will as she was found unable to make appropriate medical decisions. The patient was subsequently treated for her CVA in [facility] and admitted to their acute inpatient rehab unit. Review of records from that hospitalization indicated that she had severe agitation and inappropriate behavior. Psychiatry has been consulted, who felt that she again lacked the ability to make appropriate medical decision and was treated for an unspecified mood disorder with Haldol and Depakote. At some point, the patient made a suicidal gesture by attempting to strangle herself with the telephone cord when she did not feel that she was getting her own way. Final note from Psychiatry seems to indicate that her symptoms had improved to the point that she was no longer seemingly a threat to herself or others and was appropriate to be discharged home. The patient was home with her fiance, her boyfriend, Kevin, for approximately 2 days, at which point, he called the EMS to transport her back to the emergency department for continued erratic and inappropriate behavior. CT scan of the brain at the time of admission showed evidence of her recent stroke and perhaps a small area of hemorrhagic conversion , but no other significant findings. She had some initial mild leukocytosis and hyponatremia as well as hypokalemia. She was subsequently admitted to the medical service for further evaluation. The patient was somewhat confused as to the circumstances of her admission, felt that she had come to the hospital for refill of her Mirapex and wished to return home. Ability to complete a full physical exam was somewhat limited due to the patient's ability to cooperate or willingness to cooperate, but there was no obvious focal neurologic deficit. The patient was able to communicate appropriately, move all extremities and ambulate. The patient was evaluated to determine capacity by psychiatrist, Dr. Tellez, who again deemed the patient lacked capacity to make appropriate medical decisions and agreed with prior treatment initiated at [facility] with Haldol and Depakote. The patient was unwilling to cooperate with taking oral indications and became increasingly agitated during her hospital stay. She yelled profanities to nursing and medical staff and remained confused as to the circumstances of her hospital admission and despite multiple attempts at therapeutic communication, she was unwilling to comply with medical treatment. The patient then made a statement to nursing staff that she wished to if she was to stay in the hospital. Requested repeat evaluation by Psychiatry for appropriateness for admission to psychiatric unit and the patient was subsequently accepted by Dr. Marley for further evaluation and treatment. There is no obvious organic etiology to her current behavior and it sounds to be consistent with what was observed at [facility]. Her current behavior seems to be worse since sustaining her acute CVA approximately 2 weeks ago, but her boyfriend or fiance does report that a long history of similar but less severe symptoms and he does not feel that he can care for her appropriately at home. DISPOSITION AND FOLLOWUP PLAN: The patient is being transferred to inpatient psychiatric care, accepted by Dr. Marley. VIPIN LR [id number]/[facility] #: [id number] [facility] CENTERShanna
== END 2017-06-10 14:30 | DRG 885 ==
LOC: ED 22:58 → MED 06-09 03:21 → OBSVTOIN 06-09 14:44
PROVIDERS: ADMIT Internal Medicine; ATTEND Physician Assistant
DX: F39 Unspecified mood [affective] disorder (principal); I61.9 Nontraumatic intracerebral hemorrhage, unspecified; E87.1 Hypo-osmolality and hyponatremia; R45.851 Suicidal ideations; R45.1 Restlessness and agitation; F29 Unspecified psychosis not due to a substance or known physiological condition; G25.81 Restless legs syndrome; D72.829 Elevated white blood cell count, unspecified; E87.6 Hypokalemia; F17.210 Nicotine dependence, cigarettes, uncomplicated; F31.9 Bipolar disorder, unspecified; Z86.73 Personal history of transient ischemic attack (TIA), and cerebral infarction without residual deficits; Z79.82 Long term (current) use of aspirin; Z79.899 Other long term (current) drug therapy
CPT/HCPCS: 36415; 70450; 80048; 80053; 81003; 81015; 83605; 84484; 85025; 87086; 99406; A9270-GY; J1200; J1630; J1644; J2060; J3486

== ENCOUNTER 2017-06-10 14:30 | Inpatient (IN) | payer MEDICAID ==
[2017-06-10] MEDS ORDERED: Haloperidol TAB* 5 MG PO PRN (17:04)
[2017-06-10] MEDS: Divalproex ER TAB(*) 500 MG PO SCH (18:53)
[2017-06-10] MEDS: Pramipexole TAB* 0.5 MG PO SCH (20:14)
[2017-06-10] MEDS ORDERED: Acetaminophen TAB* 325 MG ONE (21:54)
[2017-06-11] MEDS: Atorvastatin* 80 MG TAB PO SCH ×2 (09:42→10:01)
[2017-06-11] MEDS: Pramipexole TAB* 0.5 MG PO SCH ×4 (09:42→20:01)
[2017-06-11] MEDS: Aspirin TAB* 325 MG PO SCH (09:42)
[2017-06-11 11:20] LABS: Albumin 3.7 g/dL (3.2-5.2); BUN/Creatinine Ratio 16.4 (8-20); Calcium 9.2 mg/dL (8.6-10.3); EGFR African American 121.9 (>60); EGFR Non-African American 94.8 (>60); Globulin 2.9 g/dL (2-4); Potassium 3.8 mmol/L (3.5-5.0); Total Bilirubin 0.5 mg/dL (0.2-1.0); Total Protein 6.6 g/dL (6.4-8.9)
--- NOTE | 2017-06-11 14:12 | HP ---
H&P (Free Text) History and Physical: HPI: ---- 46yo female patient with PPHx significant for Bipolar d/o by Hx presents to the [facility] ED, brought in by ambulance, called by patient's BF due to disorganized TP and erratic behaviors. Patient was discharged on 06/08/17 form [facility], treated for CVA. Patient noted to have belligerent altercations with staff since the CVA was diagnosed initially at [facility] on 05/25/17. Also of note, patient's capacity was in question at [facility] days prior to discharge due to her agitation, belligerence, and poor judgement. Patient is calm, cooperative today. She is still disorganized and disoriented. Patient noted to have less aggression , but still is easily agitated. Patient denies SI/HI and AH/VH. AMS 2/2 recent CVA vs Bipolar with PFs. Past Psych Hx: Prior dx with Bipolar d/o by hx, otherwise patient uncooperative. Suicide attempt Hx / SIB Hx: Sucidal gesture at [facility](wrapping a phone cord around her neck) during admission last week. Patient uncooperative. Substance Hx: Recent Cannabis use d/o symptoms noted. Patient uncooperative. Medical Hx: HLD Psoriasis Patient uncooperative. Surgical Hx: Cholecystectomy Hysterectomy Patient uncooperative. Allergies: --------- NKDA Social Hx: --------- Patient lives with supportive BF Patient uncooperative. Vitals: ------ Vital Signs (72 hours) 06/08/17 06/09/17 06/09/17 23:04 01:37 01:38 Temperature 97.4 F Pulse Rate 87 Respiratory 16 15 Rate Blood Pressure 130/70 163/95 (mmHg) O2 Sat by Pulse 96 Oximetry 06/09/17 06/09/17 04:32 07:58 Temperature 97.8 F 98.2 F Pulse Rate 62 79 Respiratory 18 11 Rate Blood Pressure 148/50 112/59 (mmHg) O2 Sat by Pulse 97 97 Oximetry LABS: ------- (06/09/17) CT BRAIN IMPRESSION: HIGH ATTENUATION OF GYRI IN THE AREA OF INFARCT IN THE L TEMPORAL LOBE WHICH MAY OR PRESENT PETECHIAL HEMORRHAGE OR CORTICAL LAMINAR NECROSIS (05/25/2017) CT BRAIN IMPRESSION: The constellation of findings is most suspicious for a large LEFT middle cerebral artery distribution subacute ischemic stroke with mild associated mass effect. As tumor with vasogenic peritumoral edema is not entirely excluded MRI without and with contrast is suggested for further assessment if deemed appropriate based on clinical presentation and is clinically feasible. Laboratory Tests 06/09/17 06/09/17 06/09/17 01:15 01:15 01:15 WBC 12.8 H RBC 4.32 Hgb 13.7 Hct 41 MCV 95 MCH 32 H MCHC 33 RDW 14 Plt Count 247 MPV 10 Neut % (Auto) 71.6 Lymph % (Auto) 13.8 L [place] % (Auto) 5.5 Eos % (Auto) 2.6 Baso % (Auto) 6.5 H Absolute Neuts (auto) 9.1 H Absolute Lymphs (auto) 1.8 Absolute Monos (auto) 0.7 Absolute Eos (auto) 0.3 Absolute Basos (auto) 0.8 H Absolute Nucleated RBC 0.01 Nucleated RBC % 0.1 Sodium 123 L Potassium 3.3 L Chloride 92 L Carbon Dioxide 26 Anion Gap 5 BUN 10 Creatinine 0.63 Est GFR ( Amer) 130.8 Est GFR (Non-Af Amer) 101.7 BUN/Creatinine Ratio 15.9 Glucose 103 H Lactic Acid 1.1 Calcium 9.8 Total Bilirubin 0.40 AST 18 ALT 23 Alkaline Phosphatase 91 Troponin I 0.01 Total Protein 7.0 Albumin 3.9 Globulin 3.1 Albumin/Globulin Ratio 1.3 Urine Color Urine Appearance Urine pH Ur Specific [place] Urine Protein Urine Ketones Urine Blood Urine Nitrate Urine Bilirubin Urine Urobilinogen Ur Leukocyte Esterase Urine WBC (Auto) Urine RBC (Auto) Ur Squamous Epith Cells Urine Bacteria Urine Glucose 06/09/17 01:25 WBC RBC Hgb Hct MCV MCH MCHC RDW Plt Count MPV Neut % (Auto) Lymph % (Auto) [place] % (Auto) Eos % (Auto) Baso % (Auto) Absolute Neuts (auto) Absolute Lymphs (auto) Absolute Monos (auto) Absolute Eos (auto) Absolute Basos (auto) Absolute Nucleated RBC Nucleated RBC % Sodium Potassium Chloride Carbon Dioxide Anion Gap BUN Creatinine Est GFR ( Amer) Est GFR (Non-Af Amer) BUN/Creatinine Ratio Glucose Lactic Acid Calcium Total Bilirubin AST ALT Alkaline Phosphatase Troponin I Total Protein Albumin Globulin Albumin/Globulin Ratio Urine Color Yellow Urine Appearance Cloudy Urine pH 5.0 Ur Specific [place] 1.017 Urine Protein Negative Urine Ketones Trace H Urine Blood Negative Urine Nitrate Negative Urine Bilirubin Negative Urine Urobilinogen Negative Ur Leukocyte Esterase Trace H Urine WBC (Auto) 1+(6-10/hpf) H Urine RBC (Auto) Trace(0-2/hpf) Ur Squamous Epith Cells Present H Urine Bacteria 1+ H Urine Glucose Negative PHYSICAL EXAM: Patient declines PE. Please see H&P documented in the [facility]: Psychiatric Complaint note dated 06/08/17. Patient admitted to medicine prior to this B[facility] admission. MSE: ----- Appearance - obese female, looks stated age, in hospital gown, tattooed on back and both upper extremities Behavior - agitated, PMR, cooperative initially only Speech - mumbled/slurred, dysarthric, soft volume, with slow rate Eye Contact - poor Mood - "pissed off" Affect - agitated TP - disorganized TC - focused on suing hospital for restraining her from leaving the ED last night Perception - no symptoms of psychosis currently reported or noted Orientation - A&Ox2(person and place) Cognition - slowed Attention - poor Insight - poor Judgment - poor SI / HI - denies both ASSESSMENT: 1. Delirium 2/2 CVA vs Bipolar with PFs PLAN: ------- 1. Continue [facility] BSU admission for safety and symptom mx. 2. Continue psychotropic regimen as prescribed. 3. Wheelchair and carlos-chair for ambulation through the unit. 4. Patient to participate in milieu activities and groups.
[2017-06-11] MEDS: Divalproex ER TAB(*) 500 MG PO SCH (17:41)
[2017-06-11] MEDS ORDERED: diPHENhydraMINE PO* 50 MG ONE (17:49)
[2017-06-11] MEDS: Acetaminophen TAB* 325 MG PO PRN (18:36)
[2017-06-12] MEDS: diPHENhydraMINE PO* 50 MG PO PRN ×3 (06:48→16:00)
[2017-06-12] MEDS: Atorvastatin* 80 MG TAB PO SCH (09:45)
[2017-06-12] MEDS: Pramipexole TAB* 0.5 MG PO SCH ×3 (09:45→20:13)
[2017-06-12] MEDS: Aspirin TAB* 325 MG PO SCH (09:45)
[2017-06-12] MEDS: Divalproex ER TAB(*) 500 MG PO SCH (16:57)
[2017-06-13] MEDS: Acetaminophen TAB* 325 MG PO PRN ×2 (05:35→17:46)
--- NOTE | 2017-06-13 06:56 | PN ---
Subjective - Subjective Service Type: 85177 Hosp care 15 min low complexity - NOTE for 06/12/17 Encounter Subjective: Patient lying in her bed on my approach. She sits up and engages the interview. Patient reports she remembers me from our interview on the medical floor. She reports remembering becoming agitated and cutting short the interview. Patient stated, "I'm Turkish", quick tempered. Patient is linear and GD on interview. She is A&Ox4. Patient reports noting improved memory and improved strength since her stroke. Patient is happy to be up ambulating with a walker in stead of a carlos-chair. Patient concerned with generalized rash. Patient reports it starting since starting her re-trial on Depakote. Patient informed Depakote will be d/c'd and added to her allergy list. Pt amenable to start of [place]. Patient denies MADDOX, CP, Abd pain and issues with urination or constipation/diarrhea. Patient understands she will discharge to a physical rehab facility once discharged. She requests being discharge from BSU at least 2 days prior to admission to the physical rehab facility. Patient reports the need to be alone, in her home, and process the last 2 weeks. Patient lives with BF who does not want patient in his home. Patient denies SI/HI and AH/VH. Objective - Appearance Appearance: Obese Dysmorphic Features: No Hygiene: Normal Grooming: Fairly Well Kept - Behavior Exhibits Abnormal Movement: Yes - Attitude and Relatedness Attitude and Relatedness: Cooperative Eye Contact: Fair - Speech Quality: Unpressured Latencies: Normal Quantity: Appropriate - Mood Patient's Decription of Mood: "Okay" - Affect Observed Affect: Tearful Affect Consistent with: Euthymia - Thought Process Patient's Thought Process: Coherent Thought Content: No Passive Wish, No Suicidal Planning, No Homicidal Ideation, No Paranoid Ideation - Sensorium Experiencing Hallucinations: No, Sensorium is Clear Type of Hallucinations: Visual: No, Auditory: No, Command: No - Level of Consciousness Level of Consciousness: Alert Orientation: Yes Intact, Yes Orientated to Time, Yes Orientated to Place, Yes Orientated to Person - Impulse Control Impulse Control: Intact - Insight and Judgement Insight and Judgement: Fair - Group Participation Particating in Group Activities: Yes - Medication Management Medication Management Adherence: Yes Assessment - Assessment Merits Inpatient Hospitalization: For Immediate Safety, For Stabilization Inpatient DSM-IV Dx: 1. AMS 2/2 recent CVA, resolving. 2. Bipolar d/o by Hx Plan - Plan Treatment Plan: Name: LISA CASTAÑEDA Birthdate: 1970 [id number] 1. Continue [facility] BSU admission for safety and symptom mx. 2. Depakote added as an allergy - Rash. 3. Patient gives informed consent to start [place] 300mg po daily for mood stabilization. 4. Transfer to a SNF planned. 5. Collateral information obtained from live-in Kevin. 6. Patient to participate in milieu activities and groups. Continued Medication Management: Different Medication Medications: Current Medications Acetaminophen (Tylenol Tab*) 650 mg PO Q4H PRN PRN Reason: PAIN/TEMP Last Admin: 06/13/17 05:35 Dose: 650 mg Aspirin (Aspirin Tab*) 325 mg PO DAILY [facility] Last Admin: 06/12/17 09:45 Dose: 325 mg Atorvastatin Calcium (Lipitor*) 80 mg PO DAILY [facility] Last Admin: 06/12/17 09:45 Dose: 80 mg Diphenhydramine HCl (Benadryl Po*) 50 mg PO Q6H PRN PRN Reason: ITCHING, INSOMNIA, ANXIETY Last Admin: 06/12/17 16:00 Dose: 50 mg Haloperidol (Haldol Tab*) 5 mg PO Q6H PRN PRN Reason: AGITATION [place] Carbonate ([place] Carbonate Tab*) 300 mg PO QAM [facility] Pramipexole Dihydrochloride (Mirapex Tab*) 3 mg PO TID [facility] Last Admin: 06/12/17 20:13 Dose: 3 mg - Discharge Plan Discharge Plan: Outpatient Follow Up Outpatient Program: SNF s/p CVA
[2017-06-13] MEDS ORDERED: Lithium Carbonate ER* 450 MG TAB.ER PO ONE (08:00)
[2017-06-13] MEDS: Aspirin TAB* 325 MG PO SCH (09:38)
[2017-06-13] MEDS: Atorvastatin* 80 MG TAB PO SCH (09:38)
[2017-06-13] MEDS: Lithium Carbonate TAB* 300 MG PO SCH (09:39)
[2017-06-13] MEDS: Pramipexole TAB* 0.5 MG PO SCH ×3 (09:47→20:35)
--- NOTE | 2017-06-13 11:26 | PN ---
Subjective - Subjective Service Type: 89028 Hosp care 15 min low complexity Subjective: Patient labile in mood. Staff notes multiple tearful episodes and episodes of agitation. Patient informed her BF does not feel comfortable with patient returning to his home they shared as since the CVA 2 weeks ago, patient has had falls in his home and has been abnormally aggressive. Patient informed by this provider due to her cognitive dysfunction s/p CVA. She has been deemed without capacity to make medical decisions. Patient informed she will be meeting with reps from [facility] at 10am in the morning. Patient objects that she will not be able to discharge to a friends home to take a day to process before going to the SNF. Patient then became verbally aggressive. Then threatened suicide stating, "okay, I'm gonna kill myself then" . She ended the interview next. Objective - Appearance Appearance: Obese Dysmorphic Features: No Hygiene: Normal Grooming: Fairly Well Kept - Behavior Psychomotor Activities: Abnormal-Decreased Exhibits Abnormal Movement: Yes - Attitude and Relatedness Attitude and Relatedness: Minimally Cooperative Eye Contact: Fair - Speech Quality: Unpressured Latencies: Normal Quantity: Appropriate - Mood Patient's Decription of Mood: "Upset" - Affect Observed Affect: Labile Affect Consistent with: Dysphoria - Thought Process Patient's Thought Process: Disorganized Thought Content: No Passive Wish, No Suicidal Planning, No Homicidal Ideation, No Paranoid Ideation - Sensorium Experiencing Hallucinations: No, Sensorium is Clear Type of Hallucinations: Visual: No, Auditory: No, Command: No - Level of Consciousness Level of Consciousness: Alert Orientation: Yes Intact, Yes Orientated to Time, Yes Orientated to Place, Yes Orientated to Person - Impulse Control Impulse Control: Impaired - Insight and Judgement Insight and Judgement: Impaired - Group Participation Particating in Group Activities: No - Medication Management Medication Management Adherence: Yes Assessment - Assessment Merits Inpatient Hospitalization: For Immediate Safety, For Stabilization Inpatient DSM-IV Dx: 1. AMS 2/2 recent CVA, resolving. 2. Bipolar d/o MRE mixed Plan - Plan Treatment Plan: Name: LISA CASTAÑEDA Birthdate: 1970 [id number] 1. Continue [facility] BSU admission for safety and symptom mx. 2. Depakote discontinued and added as an allergy - Rash. 3. Continue [place] 300mg po daily for mood stabilization. 4. Transfer to a SNF planned. Patient meeting with [facility] in am. 5. Collateral information obtained from live-in Kevin. 6. Patient to participate in milieu activities and groups. Medications: Current Medications Acetaminophen (Tylenol Tab*) 650 mg PO Q4H PRN PRN Reason: PAIN/TEMP Last Admin: 06/13/17 05:35 Dose: 650 mg Aspirin (Aspirin Tab*) 325 mg PO DAILY [facility] Last Admin: 06/13/17 09:38 Dose: 325 mg Atorvastatin Calcium (Lipitor*) 80 mg PO DAILY [facility] Last Admin: 06/13/17 09:38 Dose: 80 mg Diphenhydramine HCl (Benadryl Po*) 50 mg PO Q6H PRN PRN Reason: ITCHING, INSOMNIA, ANXIETY Last Admin: 06/12/17 16:00 Dose: 50 mg Haloperidol (Haldol Tab*) 5 mg PO Q6H PRN PRN Reason: AGITATION [place] Carbonate ([place] Carbonate Tab*) 300 mg PO DAILY@0800 [facility] Last Admin: 06/13/17 09:39 Dose: 300 mg Pramipexole Dihydrochloride (Mirapex Tab*) 3 mg PO TID [facility] Last Admin: 06/13/17 09:47 Dose: Not Given - Discharge Plan Outpatient Program: SNF for post CVA rehab
[2017-06-13] MEDS ORDERED: Nicotine GUM* 2 MG PO PRN (15:27)
[2017-06-13] MEDS: diPHENhydraMINE PO* 50 MG PO PRN (20:35)
[2017-06-14] MEDS: Acetaminophen TAB* 325 MG PO PRN ×2 (04:45→20:59)
[2017-06-14] MEDS: Aspirin TAB* 325 MG PO SCH (10:01)
[2017-06-14] MEDS: Pramipexole TAB* 0.5 MG PO SCH ×3 (10:01→21:15)
[2017-06-14] MEDS: Lithium Carbonate TAB* 300 MG PO SCH (10:01)
[2017-06-14] MEDS: Atorvastatin* 80 MG TAB PO SCH (10:01)
--- NOTE | 2017-06-14 14:01 | PN ---
Subjective - Subjective Service Type: 08300 Hosp care 15 min low complexity Subjective: Patient noticeably less agitated on interview, but still labile. Patient is up ambulating very steady with walker. Patient reports fair sleep and appetite. Patient reports rash has cleared with exception of some still on her scalp since d/c of Depakote. Patient opens up about anger she feels towards her BF for not accepting her back into his home. She reports she will focus on writing while at the SNF. After our talk, patient informed she must show participation in PT here to be admitted to [facility]. Patient denies SI/HI and AH/VH. She reports noted benefit to agitation and no s/e on [place]. Objective - Appearance Appearance: Obese Dysmorphic Features: No Hygiene: Normal Grooming: Fairly Well Kept - Behavior Psychomotor Activities: Abnormal-Decreased Exhibits Abnormal Movement: Yes - Attitude and Relatedness Attitude and Relatedness: Superficially Cooperative Eye Contact: Fair - Speech Quality: Unpressured Latencies: Normal Quantity: Terse - Mood Patient's Decription of Mood: "Upset" - Affect Observed Affect: Labile Affect Consistent with: Dysphoria - Thought Process Patient's Thought Process: Coherent Thought Content: No Passive Wish, No Suicidal Planning, No Homicidal Ideation, No Paranoid Ideation - Sensorium Experiencing Hallucinations: No, Sensorium is Clear Type of Hallucinations: Visual: No, Auditory: No, Command: No - Level of Consciousness Level of Consciousness: Alert Orientation: Yes Intact, Yes Orientated to Time, Yes Orientated to Place, Yes Orientated to Person - Impulse Control Impulse Control: Poor - Insight and Judgement Insight and Judgement: Poor - Group Participation Particating in Group Activities: No - Medication Management Medication Management Adherence: Yes Assessment - Assessment Merits Inpatient Hospitalization: For Immediate Safety, For Stabilization Inpatient DSM-IV Dx: 1. AMS 2/2 recent CVA, resolving. 2. Bipolar d/o MRE mixed Plan - Plan Treatment Plan: Name: LISA CASTAÑEDA Birthdate: 1970 [id number] 1. Continue [facility] [place] [facility] admission for safety and symptom mx. 2. Depakote discontinued and added as an allergy - Rash. 3. Continue [place] 300mg po daily for mood stabilization. [place] level within 5 days. 4. Transfer to a SNF planned. Patient met [facility] staff. Pt. understands documentation of participation in PT here is required prior to admission there. 5. Collateral information obtained from live-in Kevin. 6. Patient to participate in milieu activities and groups. Continued Medication Management: Different Medication Medications: Current Medications Acetaminophen (Tylenol Tab*) 650 mg PO Q4H PRN PRN Reason: PAIN/TEMP Last Admin: 06/14/17 04:45 Dose: 650 mg Aspirin (Aspirin Tab*) 325 mg PO DAILY [facility] Last Admin: 06/14/17 10:01 Dose: 325 mg Atorvastatin Calcium (Lipitor*) 80 mg PO DAILY [facility] Last Admin: 06/14/17 10:01 Dose: 80 mg Diphenhydramine HCl (Benadryl Po*) 50 mg PO Q6H PRN PRN Reason: ITCHING, INSOMNIA, ANXIETY Last Admin: 06/13/17 20:35 Dose: 50 mg [place] Carbonate ([place] Carbonate Tab*) 300 mg PO DAILY@0800 [facility] Last Admin: 06/14/17 10:01 Dose: 300 mg Nicotine Polacrilex (Nicotine Gum*) 2 mg PO Q2H PRN PRN Reason: CRAVING Pramipexole Dihydrochloride (Mirapex Tab*) 3 mg PO TID [facility] Last Admin: 06/14/17 10:01 Dose: 3 mg - Discharge Plan Discharge Plan: Outpatient Follow Up Outpatient Program: admission to SNF for PT post CVA
[2017-06-15] MEDS: diPHENhydraMINE PO* 50 MG PO PRN (02:05)
[2017-06-15] MEDS: Pramipexole TAB* 0.5 MG PO SCH ×3 (09:00→21:04)
[2017-06-15] MEDS: Atorvastatin* 80 MG TAB PO SCH (09:00)
[2017-06-15] MEDS: Lithium Carbonate TAB* 300 MG PO SCH (09:00)
[2017-06-15] MEDS: Aspirin TAB* 325 MG PO SCH (09:00)
[2017-06-15] MEDS: Acetaminophen TAB* 325 MG PO PRN ×2 (13:20→19:22)
--- NOTE | 2017-06-15 15:53 | PN ---
MHU: Group Therapy Note - Service Type Service Type: [id number] Group Psychotherapy - Group Participation Patient Participating in Group: No
--- NOTE | 2017-06-15 15:55 | PN ---
Subjective - Subjective Service Type: 48525 Hosp care 15 min low complexity Subjective: Patient visible in the milieu, noted to be social with select peers. Patient reports participation in today's PT session. Patient reports further improved memory and muscle strength since the CVA. Patient is noted to ambulate fairly steady today without her walker. There is documentation from PT that patient no longer needs the walker and can ambulate independently. Patient eager to know date of transfer to [facility]. Patient reports no desire to stay the weekend if [facility] is unable to admit her. Patient is linear and GD in TP. Still noted to have diminished memory, but verbalized good planning and was rational/logical in conversation. Patient may have capacity. She was informed another MSE would be done Monday if [facility] can not admit her to determine her capacity to discharge from [facility]. 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 Patient denies SI/HI and AH/VH. Objective - Appearance Appearance: Obese, Thin Framed Dysmorphic Features: No Hygiene: Normal Grooming: Fairly Well Kept - Behavior Psychomotor Activities: Abnormal-Decreased Exhibits Abnormal Movement: Yes - Attitude and Relatedness Attitude and Relatedness: Cooperative Eye Contact: Fair - Speech Quality: Unpressured Latencies: Normal Quantity: Appropriate - Mood Patient's Decription of Mood: "Okay" - Affect Observed Affect: Fair Affect Consistent with: Euthymia - Thought Process Patient's Thought Process: Coherent Thought Content: No Passive Wish, No Suicidal Planning, No Homicidal Ideation, No Paranoid Ideation - Sensorium Experiencing Hallucinations: No, Sensorium is Clear Type of Hallucinations: Visual: No, Auditory: No, Command: No - Level of Consciousness Level of Consciousness: Alert Orientation: Yes Intact, Yes Orientated to Time, Yes Orientated to Place, Yes Orientated to Person - Impulse Control Impulse Control: Intact - Insight and Judgement Insight and Judgement: Fair - Group Participation Particating in Group Activities: No - Medication Management Medication Management Adherence: Yes Assessment - Assessment Merits Inpatient Hospitalization: For Immediate Safety, For Stabilization Inpatient DSM-IV Dx: 1. AMS 2/2 recent CVA, resolving. 2. Bipolar d/o MRE mixed Plan - Plan Treatment Plan: Name: LISA CASTAÑEDA Birthdate: 1970 [id number] 1. Continue [facility] admission for safety and symptom mx. 2. Depakote discontinued and added as an allergy - Rash. 3. Continue [place] 300mg po daily for mood stabilization. [place] level within 5 days. 4. Transfer to a SNF planned. Patient met [facility] staff. Pt. understands documentation of participation in PT here is required prior to admission there. 5. Collateral information obtained from live-in Kevin. 6. Patient to participate in milieu activities and groups. Medications: Current Medications Acetaminophen (Tylenol Tab*) 650 mg PO Q4H PRN PRN Reason: PAIN/TEMP Last Admin: 06/15/17 13:20 Dose: 650 mg Aspirin (Aspirin Tab*) 325 mg PO DAILY [facility] Last Admin: 06/15/17 09:00 Dose: 325 mg Atorvastatin Calcium (Lipitor*) 80 mg PO DAILY [facility] Last Admin: 06/15/17 09:00 Dose: 80 mg Diphenhydramine HCl (Benadryl Po*) 50 mg PO Q6H PRN PRN Reason: ITCHING, INSOMNIA, ANXIETY Last Admin: 06/15/17 02:05 Dose: 50 mg [place] Carbonate ([place] Carbonate Tab*) 300 mg PO DAILY@0800 [facility] Last Admin: 06/15/17 09:00 Dose: 300 mg Nicotine Polacrilex (Nicotine Gum*) 2 mg PO Q2H PRN PRN Reason: CRAVING Pramipexole Dihydrochloride (Mirapex Tab*) 3 mg PO TID [facility] Last Admin: 06/15/17 13:21 Dose: Not Given - Discharge Plan Outpatient Program: transfer to SNF for post CVA rehab
[2017-06-16] MEDS: diPHENhydraMINE PO* 50 MG PO PRN (00:16)
[2017-06-16] MEDS: Aspirin TAB* 325 MG PO SCH (09:39)
[2017-06-16] MEDS: Lithium Carbonate TAB* 300 MG PO SCH (09:39)
[2017-06-16] MEDS: Atorvastatin* 80 MG TAB PO SCH (09:39)
[2017-06-16] MEDS: Pramipexole TAB* 0.5 MG PO SCH ×3 (09:40→21:35)
--- NOTE | 2017-06-16 12:40 | PN ---
Subjective - Subjective Service Type: 87364 Hosp care 15 min low complexity Subjective: Patient demonstrates capacity to make medical decisions. She was informed her BF Kevin could not come to see patient. To ensure a safe discharge, team needs to have Kevin observe patient(physical and mental) and determine if he is comfortable with her returning to his home that they share. He reports the earliest he can visit is Monday. He and patient informed discharge will be on hold until Monday after Kevin has a chance to access patient. Patient became suddenly agitated, belligerent and verbally abusive with news she would not discharge today. Objective - Appearance Appearance: Obese Dysmorphic Features: No Hygiene: Normal Grooming: Fairly Well Kept - Behavior Psychomotor Activities: Normal Exhibits Abnormal Movement: No - Attitude and Relatedness Attitude and Relatedness: Cooperative Eye Contact: Fair - Speech Quality: Unpressured Latencies: Normal Quantity: Copious - Mood Patient's Decription of Mood: "Good" - Affect Observed Affect: Tearful Affect Consistent with: Dysphoria - Thought Process Patient's Thought Process: Coherent Thought Content: No Passive Wish, No Suicidal Planning, No Homicidal Ideation, No Paranoid Ideation - Sensorium Experiencing Hallucinations: No, Sensorium is Clear Type of Hallucinations: Visual: No, Auditory: No, Command: No - Level of Consciousness Level of Consciousness: Alert Orientation: Yes Intact, Yes Orientated to Time, Yes Orientated to Place, Yes Orientated to Person - Impulse Control Impulse Control: Poor - Insight and Judgement Insight and Judgement: Poor - Group Participation Particating in Group Activities: No - Medication Management Medication Management Adherence: Yes Assessment - Assessment Merits Inpatient Hospitalization: For Immediate Safety, For Stabilization Inpatient DSM-IV Dx: 1. AMS 2/2 recent CVA, resolving. 2. Bipolar d/o MRE mixed Plan - Plan Treatment Plan: Name: LISA CASTAÑEDA Birthdate: 1970 [id number] 1. Continue [facility] admission for safety and symptom mx. 2. Depakote discontinued and added as an allergy - Rash. 3. Continue [place] 300mg po daily for mood stabilization. [place] level won Monday. 4. Transfer to a SNF discontinued as assessment from SNF business services representative is that patient's muscle strength and function has returned to "90 percent" pre CVA function. 5. Patient to participate in milieu activities and groups. Medications: Current Medications Acetaminophen (Tylenol Tab*) 650 mg PO Q4H PRN PRN Reason: PAIN/TEMP Last Admin: 06/15/17 19:22 Dose: 650 mg Aspirin (Aspirin Tab*) 325 mg PO DAILY [facility] Last Admin: 06/16/17 09:39 Dose: 325 mg Atorvastatin Calcium (Lipitor*) 80 mg PO DAILY [facility] Last Admin: 06/16/17 09:39 Dose: 80 mg Diphenhydramine HCl (Benadryl Po*) 50 mg PO Q6H PRN PRN Reason: ITCHING, INSOMNIA, ANXIETY Last Admin: 06/16/17 00:16 Dose: 50 mg [place] Carbonate ([place] Carbonate Tab*) 300 mg PO DAILY@0800 [facility] Last Admin: 06/16/17 09:39 Dose: 300 mg Nicotine Polacrilex (Nicotine Gum*) 2 mg PO Q2H PRN PRN Reason: CRAVING Pramipexole Dihydrochloride (Mirapex Tab*) 3 mg PO TID [facility] Last Admin: 06/16/17 09:40 Dose: Not Given - Discharge Plan Discharge Plan: Outpatient Follow Up
[2017-06-16] MEDS: Acetaminophen TAB* 325 MG PO PRN (16:08)
[2017-06-17] MEDS: Acetaminophen TAB* 325 MG PO PRN ×2 (07:12→18:45)
[2017-06-17] MEDS: Lithium Carbonate TAB* 300 MG PO SCH (07:55)
[2017-06-17] MEDS: Aspirin TAB* 325 MG PO SCH (07:55)
[2017-06-17] MEDS: Pramipexole TAB* 0.5 MG PO SCH ×3 (07:55→21:02)
[2017-06-17] MEDS: Atorvastatin* 80 MG TAB PO SCH (07:55)
[2017-06-18] MEDS: Acetaminophen TAB* 325 MG PO PRN ×4 (05:20→23:09)
[2017-06-18] MEDS: Aspirin TAB* 325 MG PO SCH (09:12)
[2017-06-18] MEDS: Atorvastatin* 80 MG TAB PO SCH (09:12)
[2017-06-18] MEDS: Lithium Carbonate TAB* 300 MG PO SCH (09:13)
[2017-06-18] MEDS: Pramipexole TAB* 0.5 MG PO SCH ×3 (09:14→20:22)
[2017-06-19 08:06] VITALS: BP 117/65
[2017-06-19] MEDS: Pramipexole TAB* 0.5 MG PO SCH ×2 (10:32→13:41)
[2017-06-19] MEDS: Aspirin TAB* 325 MG PO SCH (10:32)
[2017-06-19] MEDS: Atorvastatin* 80 MG TAB PO SCH (10:32)
[2017-06-19] MEDS: Lithium Carbonate TAB* 300 MG PO SCH (10:32)
[2017-06-19] MEDS: Acetaminophen TAB* 325 MG PO PRN (10:58)
--- NOTE | 2017-06-19 13:21 | PN ---
MHU: Group Therapy Note - Service Type Service Type: [id number] Group Psychotherapy - Cognitive Behavioral Group Therapy ( CBT):Patient was attentive and participatory in CBT programming this morning, and remained in good behavioral control. Patient expressed positive insights regarding relevant treatment interventions and goals.
--- NOTE | 2017-06-19 13:45 | DS ---
Subjective - Subjective Service Types: 11858 Hosp DC Day Mgmt simple under 30 min Subjective: Patient reported to be visible in milieu, social with select peers. Patient noted to be linear in TP and future oriented in conversation. Patient reported to be feeling ready to discharge. She denied SI/ HI and AH/VH. Objective - Appearance Appearance: Obese Dysmorphic Features: No Hygiene: Normal Grooming: Fairly Well Kept - Behavior Psychomotor Activities: Normal Exhibits Abnormal Movement: No - Attitude and Relatedness Attitude and Relatedness: Cooperative - Mood Patient's Decription of Mood: ready for discharge - Affect Observed Affect: Fair Affect Consistent with: Euthymia - Thought Process Patient's Thought Process: Coherent Thought Content: No Passive Wish, No Suicidal Planning, No Homicidal Ideation, No Paranoid Ideation - Sensorium Experiencing Hallucinations: No, Sensorium is Clear Type of Hallucinations: Visual: No, Auditory: No, Command: No - Level of Consciousness Level of Consciousness: Alert Orientation: Yes Intact, Yes Orientated to Time, Yes Orientated to Place, Yes Orientated to Person - Impulse Control Impulse Control: Intact - Insight and Judgement Insight and Judgement: Fair - Group Participation Particating in Group Activities: Yes - Medication Management Medication Management Adherence: Yes Treatment Course & Assessment Clinical Course & Impression: HOSPITAL COURSE: 46yo female patient with PPHx significant for Bipolar d/o by Hx presents to the [facility] ED, brought in by ambulance, called by patient's BF due to disorganized TP and erratic behaviors. Patient was discharged on 06/08/17 form [facility], treated for CVA. Patient noted to have belligerent altercations with staff since the CVA was diagnosed initially at [facility] on 05/25/17. Also of note, patient's capacity was in question at [facility] prior to discharge due to her agitation, belligerence, and poor judgement. Patient is calm, cooperative today. She is still disorganized and disoriented. Patient noted to have less aggression , but still is easily agitated. Patient denies SI/HI and AH/VH. AMS 2/2 recent CVA vs Bipolar with PFs. On admission, patient continued on Depakote 500mg po daily for mood stabilization and PRN Haldol 5mg po daily PRN for agitation. Patient ambulated by staff in wheelchair and carlos-chair. On admission day 1, patient lying in her bed on my approach. She sits up and engages the interview. Patient reports she remembers me from our interview on the medical floor. She reports remembering becoming agitated and cutting short the interview. Patient stated, "I'm [place]ian", quick tempered. Patient is linear and GD on interview. She is A&Ox4. Patient reports noting improved memory and improved strength since her stroke. Patient is happy to be up ambulating with a walker in stead of a carlos-chair. Patient concerned with generalized rash. Patient reports it starting since starting her re-trial on Depakote. Patient informed Depakote will be d/c'd and added to her allergy list. Pt amenable to start of Coin. Patient denies MADDOX, CP, Abd pain and issues with urination or constipation/diarrhea. Patient understands she will discharge to a physical rehab facility once discharged. She requests being discharge from [facility] at least 2 days prior to admission to the physical rehab facility. Patient reports the need to be alone, in her home, and process the last 2 weeks. Patient lives with BF who does not want patient in his home. Patient denied SI/HI and AH/VH. On admission day 2, patient labile in mood. Staff notes multiple tearful episodes and episodes of agitation. Patient informed her BF does not feel comfortable with patient returning to his home they shared as since the CVA 2 weeks ago, patient has had falls in his home and has been abnormally aggressive. Patient informed by this provider due to her cognitive dysfunction s/p CVA. She has been deemed without capacity to make medical decisions. Patient informed she will be meeting with reps from [facility] at 10am in the morning. Patient objects that she will not be able to discharge to a friends home to take a day to process before going to the SNF. Patient then became verbally aggressive. Then threatened suicide stating, "okay, I'm gonna kill myself then" . She ended the interview next. Depakote was D/C'd due to reported rash which patient identifies was associated with the start of this med. Patient gave informed consent to start Coin at 300mg po qhs. On admission day 3, Patient noticeably less agitated on interview, but still labile. Patient is up ambulating very steady with walker. Patient reports fair sleep and appetite. Patient reports rash has cleared with exception of some still on her scalp since d/c of Depakote. Patient opens up about anger she feels towards her BF for not accepting her back into his home. She reports she will focus on writing while at the SNF. After our talk, patient informed she must show participation in PT here to be admitted to [facility]. Patient denied SI/HI and AH/VH. She reported noted benefit to agitation and no s/e on Coin. On admission day 4, patient visible in the milieu, noted to be social with select peers. Patient reports participation in today's PT session. Patient reports further improved memory and muscle strength since the CVA. Patient is noted to ambulate fairly steady today without her walker. There is documentation from PT that patient no longer needs the walker and can ambulate independently. Patient eager to know date of transfer to [facility]. Patient reports no desire to stay the weekend if [facility] is unable to admit her. Patient is linear and GD in TP. Still noted to have diminished memory, but verbalized good planning and was rational/logical in conversation. Patient may have capacity. She was informed another MSE would be done Monday afternoon if [facility] not [facility] her to determine her capacity to discharge from [facility] A[facility]. 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 Patient denied SI/HI and AH/VH. On admission day 5, Patient demonstrates capacity to make medical decisions. Transfer to a SNF discontinued as assessment from SNF technical service representative is that patient's muscle strength and function has returned to "90 percent" pre CVA function.She was informed her BF Kevin could not come to see patient. To ensure a safe discharge, team needs to have Kevin observe patient(physical and mental) and determine if he is comfortable with her returning to his home that they share. He reports the earliest he can visit is Monday. He and patient informed discharge will be on hold until Monday after Kevin has a chance to access patient. Patient became suddenly agitated, belligerent and verbally abusive with news she would not discharge today. Admission day 6 and 7 were weekend days. Patient noted to continue to progress in strength, sleep, and mood. Patient deemed stable for discharge on Monday, admission day 8. Patient's BF reported feeling comfortable with patient discharging back to his home. Patient is linear in TP and future oriented in conversation reporting on her plans to write again. Patient denied SI/HI and AH/VH. Pertinent Labs: Laboratory Tests 06/11/17 06/19/17 10:46 06:41 Sodium 134 Potassium 3.8 Chloride 101 Carbon Dioxide 26 Anion Gap 7 BUN 11 Creatinine 0.67 Est GFR ( Amer) 121.9 Est GFR (Non-Af Amer) 94.8 BUN/Creatinine Ratio 16.4 Glucose 104 H Calcium 9.2 Total Bilirubin 0.50 AST 18 ALT 19 Alkaline Phosphatase 78 Total Protein 6.6 Albumin 3.7 Globulin 2.9 Albumin/Globulin Ratio 1.3 Valproic Acid 39.0 L Coin 0.12 L Consultants: PT - for physical rehab s/p CVA Discharge Meds: Home Medications Medication Instructions Recorded Confirmed Type Pramipexole [Mirapex] 3 mg PO TID #180 tab 05/08/17 06/10/17 Rx Aspirin TAB* [Aspirin 325 MG TAB*] 325 mg PO DAILY #30 06/19/17 Rx Atorvastatin* [Lipitor 80 MG*] 80 mg PO DAILY #30 06/19/17 Rx Coin Carbonate TAB* 300 mg PO DAILY@0800 #30 tab 06/19/17 Rx Follow-Up: Appts for within the next 2 weeks scheduled by for [facility] provider Clear for Discharge: Adequate Clinical Respons, Acceptable Safety Profile Inpatient DSM-IV Dx: 1. AMS 2/2 recent CVA, resolving. 2. Bipolar d/o MRE mixed Discharge Planning - Discharge Planning Discharge Plan: Outpatient Follow Up Outpatient Program: [facility] Medications: Current Medications Acetaminophen (Tylenol Tab*) 650 mg PO Q4H PRN PRN Reason: PAIN/TEMP Last Admin: 06/19/17 10:58 Dose: 650 mg Aspirin (Aspirin Tab*) 325 mg PO DAILY [facility] Last Admin: 06/19/17 10:32 Dose: Not Given Atorvastatin Calcium (Lipitor*) 80 mg PO DAILY [facility] Last Admin: 06/19/17 10:32 Dose: Not Given Diphenhydramine HCl (Benadryl Po*) 50 mg PO Q6H PRN PRN Reason: ITCHING, INSOMNIA, ANXIETY Last Admin: 06/16/17 00:16 Dose: 50 mg Coin Carbonate (Coin Carbonate Tab*) 300 mg PO DAILY@0800 [facility] Last Admin: 06/19/17 10:32 Dose: Not Given Nicotine Polacrilex (Nicotine Gum*) 2 mg PO Q2H PRN PRN Reason: CRAVING Pramipexole Dihydrochloride (Mirapex Tab*) 3 mg PO TID [facility] Last Admin: 06/19/17 13:41 Dose: Not Given Discharge Planning: Prescriptions provided for discharge [x] Yes [] No Follow up care details as per social work arrangements. Patient response to discharge plan: [] eager for discharge [x] agreeable with discharge plan [] ambivalent about discharge [] disagrees with discharge today
== END 2017-06-19 13:50 | disposition home or self-care (01) | DRG 58 ==
LOC: BSU 16:13
PROVIDERS: ADMIT Psychiatry & Neurology Psychiatry; ATTEND Psychiatry & Neurology Psychiatry
DX: I69.398 Other sequelae of cerebral infarction (principal); F31.60 Bipolar disorder, current episode mixed, unspecified; R41.82 Altered mental status, unspecified; E78.5 Hyperlipidemia, unspecified; L40.9 Psoriasis, unspecified
CPT/HCPCS: 36415; 80053; 80164; 80178; 99222; 99231; A9270-GY

== ENCOUNTER → 2017-11-08 12:01 | Emergency (ER) | payer MEDICAID, OTHER | END | disposition left against medical advice (07) | LOC: ED 12:01 | DX: R51 Headache (principal); Z53.21 Procedure and treatment not carried out due to patient leaving prior to being seen by health care provider ==

== ENCOUNTER 2017-12-17 03:39 | Emergency (ER) | payer OTHER ==
[2017-12-17] MEDS ORDERED: NS 0.9% 1000 ML* 2,000 ML IV ONE (03:59)
[2017-12-17] MEDS ORDERED: Metoclopramide IV* 5 MG/ML 2 ML VIAL IV ONE (03:59)
[2017-12-17] MEDS ORDERED: Morphine INJ* 2 MG/ML 1 ML CARPUJECT IV ONE (03:59)
[2017-12-17] MEDS ORDERED: Morphine INJ* 10 MG/ML 1 ML CARPUJECT IV ONE (04:03)
[2017-12-17] MEDS ORDERED: Iodixanol* (CONTRAST) 320 MG/ML 100 ML SDV IV ONE (04:25)
[2017-12-17 04:37] LABS: ABS Basophils 0.1 10^3/ul (0-0.2); ABS Eosinophils 0 10^3/ul (0-0.6); ABS Lymphocytes 1.9 10^3/ul (1.0-4.8); ABS Monocytes 0.6 10^3/ul (0-0.8); ABS Neutrophils 13.2 10^3/ul (1.5-7.7); ABS Nucleated RBC 0 10^3/ul; Eosinophil % 0.2 % (0-6); Hematocrit 42 % (35-47); Hemoglobin 14.1 g/dl (12.0-16.0); Lymphocyte % 11.8 % (25-47); Mean Corpuscular HGB Conc 33 g/dl (31-36); Mean Corpuscular Hemoglobin 31 pg (27-31); Mean Corpuscular Volume 93 fL (80-97); Mean Platelet Volume 9 um3 (7.4-10.4); Nucleated Red Blood Cells % 0; Platelet Count 270 10^3/ul (150-450); Red Blood Count 4.54 10^6/ul (4.0-5.4); Red Cell Distribution Width 15 % (10.5-15); White Blood Count 15.9 10^3/ul (3.5-10.8)
[2017-12-17 04:44] LABS: EGFR Non-African American 79.2 (>60)
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
[2017-12-17 06:46] VITALS: BP 135/83
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
--- NOTE | 2017-12-17 09:32 | PN ---
Progress Note - Progress Note Date of Service: 12/17/17 Note: patient was seen in ED earlier this morning. Had CT scan results read by application integration specialist radiology. Our radiologist Dr Nails states the read did show likely old compression fractures of T11 and T12 through the superior endplates. also showed bilateral adrenal nodules that he recomends a follow up noncontrast CT in a few days to follow up with PCP on. Attempted to call patient/caregiver at 9 :30am to discuss these results without an answer. A message was left. Will await return phone call and/or send a letter to inform patient/caregiver of these results.
== END 2017-12-17 06:44 | disposition home or self-care (01) ==
LOC: ED 03:39
DX: Z04.8 Encounter for examination and observation for other specified reasons (principal); Z88.8 Allergy status to other drugs, medicaments and biological substances
CPT/HCPCS: 36415; 70450; 70498; 71260; 72125; 74177; 80053; 80320; 82150; 82550; 83605; 84702; 85025; 86850; 86900; 86901; 99282; G0480; Q9967

== ENCOUNTER → 2018-01-10 10:50 | Emergency (ER) | payer OTHER ==
[~2018-01-10 10:50] MED LIST: Iodixanol* (CONTRAST) 320 MG/ML 100 ML SDV IV ONE; NS 0.9% 1000 ML* 1,000 ML IV ONE
--- NOTE | 2018-01-10 11:23 | RAD ---
INDICATION: Neurologic change. Code reyes COMPARISON: CT brain December 17, 2017 TECHNIQUE: Noncontrast axial source images were acquired from the skull base to the vertex. FINDINGS: Ventricles/sulci: The ventricles and cisterns are normal in size and configuration for age. Brain parenchyma: There is no acute focal parenchymal finding, evidence of intracranial mass, or intracranial mass effect. There is an old left hemispheric infarct with encephalomalacia, unchanged. Intracranial hemorrhage:None. Extra-axial spaces: There are no abnormal extra axial fluid collections or evidence of extra-axial mass. Calvarium: There is no calvarial fracture or other calvarial abnormality. Scalp: There is no evidence of scalp or extracalvarial soft tissue abnormality. Paranasal sinuses/mastoid: There is again complete opacification of the left maxillary antrum and multiple left ethmoid air cells.. Other: None. IMPRESSION: REMOTE LEFT HEMISPHERIC INFARCT. NO ACUTE INTRACRANIAL FINDINGS. STABLE SINUS FINDINGS Findings called to ED at 1114 hours
[2018-01-10 11:29] LABS: ABS Basophils 0.1 10^3/ul (0-0.2); ABS Eosinophils 0.1 10^3/ul (0-0.6); ABS Lymphocytes 1.9 10^3/ul (1.0-4.8); ABS Monocytes 0.5 10^3/ul (0-0.8); ABS Neutrophils 7.5 10^3/ul (1.5-7.7); ABS Nucleated RBC 0 10^3/ul; Eosinophil % 0.8 % (0-6); Hematocrit 40 % (35-47); Hemoglobin 13.5 g/dl (12.0-16.0); Lymphocyte % 18.7 % (25-47); Mean Corpuscular HGB Conc 34 g/dl (31-36); Mean Corpuscular Hemoglobin 32 pg (27-31); Mean Corpuscular Volume 93 fL (80-97); Mean Platelet Volume 9 um3 (7.4-10.4); Nucleated Red Blood Cells % 0; Platelet Count 264 10^3/ul (150-450); Red Blood Count 4.26 10^6/ul (4.0-5.4); Red Cell Distribution Width 14 % (10.5-15); White Blood Count 10.1 10^3/ul (3.5-10.8)
--- NOTE | 2018-01-10 11:36 | RAD ---
INDICATION: Neurologic changes. Code reyes. COMPARISON: None TECHNIQUE: An AP portable seated view obtained at 1101 hours is submitted. FINDINGS: Bones/Soft Tissues: There are no acute bony findings. Cardiomediastinal: The cardiomediastinal silhouette is normal. Lungs: There are no infiltrates. Pleura: There are no pleural effusions. Other: None IMPRESSION: NO ACTIVE DISEASE
[2018-01-10 11:39] LABS: INR 0.84 (0.77-1.02)
[2018-01-10 11:52] LABS: EGFR Non-African American 84.1 (>60)
--- NOTE | 2018-01-10 12:41 | RAD ---
Indication: Right-sided weakness. Contrast:Administered 80.4 ml of OMNIPAQUE 350 mg/ml CTA of the neck and head was performed after IV contrast administration. Coronal and sagittal reconstructed images were obtained. The aortic arch is grossly unremarkable. The right and left common carotid arteries demonstrates no intimal wall thickening. No evidence of plaque is noted in the internal carotid arteries. The left subclavian artery demonstrates no evidence of stenosis. No evidence of carotid artery dissection is noted. No evidence of carotid artery dissection. Vertebral arteries demonstrates no evidence of aortic dissection. Basilar arteries are unremarkable. Scattered lymph nodes are noted and level 2 lymph nodes measuring up to 7 mm and on the right measuring up to 11 mm are noted. The parotid glands are unremarkable. Submandibular glands are unremarkable. The lung apices are unremarkable. No mediastinal or hilar adenopathy noted. The intracranial vessels demonstrate no evidence of branch occlusion. No evidence of aneurysmal dilatation is noted. Anterior and middle cerebral arteries are unremarkable. Basilar artery and posterior cerebral arteries are unremarkable. No branch occlusion is noted. IMPRESSION: No evidence of carotid artery dissection is noted. No internal carotid artery stenosis is noted. No branch occlusion in the intracranial vessels is noted. No aneurysmal dilatation is noted. Noted.
[2018-01-10 13:27] LABS: Urine Appearance Clear; Urine Blood Negative (Negative); Urine Color Straw; Urine Ketones Negative (Negative); Urine Protein Negative (Negative); Urine Specific Gravity 1.013 (1.010-1.030); Urine Urobilinogen Negative (Negative)
[2018-01-10 15:24] VITALS: BP 0/0
--- NOTE | 2018-01-10 15:42 | CONS ---
NEUROLOGY CONSULTATION: DATE OF CONSULT: 01/10/18 - She is in emergency room bed 14. REFERRING PHYSICIAN: Dr. Zimmerman. CHIEF COMPLAINT: Right-sided weakness and aphasia. HISTORY OF PRESENT ILLNESS: Ara Weldon is a 47-year-old woman known to me from her initial presentation to the emergency room in 2016 with right hemiparesis and aphasia. She had a dense middle cerebral artery sign and we transferred her to [place] because I was concerned about malignant middle cerebral artery syndrome. I saw her in my office in followup this past August. She was aphasic and had a right hemiparesis, but was functioning and was on aspirin. She was on atorvastatin as well. She would not speak to me today and refused to let me evaluate her. I spoke with an advocate who knows her to some extent. She said that she was called some time early this morning and the patient was unable to communicate. She went to get her in, she had a right hemiparesis and was more aphasic than usual. She was brought into the emergency room where she had a right hemiparesis and was aphasic, but that has since resolved to at least a significant extent, if not completely. She refuses to let me examine her. She has a significant psychiatric history and was on Depakote and lithium in the past for bipolar disorder. This note is essentially a summary of my inability to care for her based on her refusal for treatment. I had recommended that she have a hypercoagulation workup after my office visit in August, but she did not follow through. I referred her to physical therapy locally, but I do not believe she followed through with that either. I am not able to provide an opinion as to her current status. I did put in orders for hypercoagulation workup which she hopefully will allow to be done as that is well overdue. I suspect she may have had a seizure given her recovery and I would recommend that she be admitted and have an EEG and an MRI scan of the brain if she will allow it. Unfortunately, I am not able to provide a complete consultation because of her refusal to let me evaluate her. [id number]/[facility] #: [id number] RICHARD
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
--- NOTE | 2018-01-12 07:27 | EEG ---
ELECTROENCEPHALOGRAM REPORT: DATE OF STUDY: 01/10/18 REFERRING PHYSICIAN: Dr. Zimmerman. LOCATION: She is in the emergency room. CLINICAL HISTORY: History of a left middle cerebral artery infarction with residual hemiparesis. The patient woke with aphasia and right hemiparesis this morning. It cleared gradually in the emergency room. The patient is on aspirin. EEG DESCRIPTION: This 16-channel EEG is remarkable for background rhythms at the onset of the tracing consisting of a well-formed alpha rhythm in the posterior derivations at 10 cycles per second. Moderate voltage bifrontal beta rhythms are seen and are mixed theta and beta frequencies. The patient is anxious and there is temporalis muscle artifact early in the tracing, but that subsides. Once the muscle artifact subsides, there is intermittent slowing noted from the left mid to anterior temporal lobe. There are phase reversing sharp waves seen not infrequently in the left mid to anterior temporal lobe between the F7 and T3 electrodes. The patient drowses and falls asleep with slight augmentation of phase- reversing sharp waves in the left temporal region. Sleep spindles and vertex sharp waves are noted. The patient awakes at the end of the recording with normal background rhythms resuming. INTERPRETATION: Abnormal EEG due to focal slowing as well as epileptiform phase - reversing sharp waves in the left mid to anterior temporal region. This tracing is compatible with focal pathology in the left temporal lobe as well as an epileptiform focus in that region. [id number]/[facility] #: [id number] [facility]
== END | disposition left against medical advice (07) ==
LOC: ED 10:50
DX: R53.1 Weakness (principal); F17.210 Nicotine dependence, cigarettes, uncomplicated; Z53.21 Procedure and treatment not carried out due to patient leaving prior to being seen by health care provider
CPT/HCPCS: 36415; 70450; 70496; 70498; 71045; 80053; 80061; 81003; 83605; 84484; 85025; 85610; 85730; 86850; 86900; 86901; 93005; 95819; 99285; Q9967